=== PATIENT | male | born 1965 | race Caucasian/White ===

== ENCOUNTER → 2018-09-01 | Day surgery (SDC) | payer OTHER ==
[2018-08-31 13:54] LABS: BASOPHILS % 0.6 % (0.0-1.0); EOSINOPHILS # (AUTO) 0.1 (0.0-0.4); EOSINOPHILS % 2.5 % (0.0-6.0); HEMATOCRIT 43.1 % (38.2-49.6); HEMOGLOBIN 14.6 g/dL (14.0-18.0); LYMPHOCYTES # (AUTO) 1.5 (1.0-3.2); LYMPHOCYTES % 28.5 % (18.0-39.1); MEAN CORPUSCULAR HEMOGLOBIN 33.5 pg (28-32); MEAN CORPUSCULAR HGB CONC 33.9 g/dL (31-35); MEAN CORPUSCULAR VOLUME 98.9 fL (81-99); MONOCYTES # (AUTO) 0.6 (0.2-0.8); MONOCYTES % 11.2 % (4.4-11.3); PLATELET COUNT 187 x10e3/uL (140-360); RED BLOOD COUNT 4.36 x10e6/uL (4.3-5.7); RED CELL DISTRIBUTION WIDTH 13.9 % (11.7-14.4)
[2018-08-31 14:16] LABS: ALANINE AMINOTRANSFERASE 35 IU/L (0-55); ALBUMIN 3.9 g/dL (3.5-5.0); ALBUMIN/GLOBULIN RATIO 1.2 (0.8-2.0); ALKALINE PHOSPHATASE 63 IU/L (40-150); ANION GAP 14.5 mmol/L (8-16); BLOOD UREA NITROGEN 16 mg/dL (7-26); BUN/CREATININE RATIO 16 (6-25); CALCIUM 9.6 mg/dL (8.4-10.2); CARBON DIOXIDE 24 mmol/L (22-29); CHLORIDE 104 mmol/L (98-107); CHOL/HDL RATIO 3.5 (3.9-4.7); CHOLESTEROL 161 MD/DL (0-199); CREATININE, SERUM 0.99 mg/dL (0.72-1.25); EST GLOMERULAR FILTRATION RATE > 60 ML/MIN (60-); GLUCOSE 102 mg/dL (74-118); HDL CHOLESTEROL 46 MG/DL (40-60); LDL CHOLESTEROL 79 MG/DL (60-130); POTASSIUM 4.5 mmol/L (3.5-5.1); SODIUM 138 mmol/L (136-145); TRIGLYCERIDES 181 MG/DL (0-149)
[~2018-09-01] VITALS: Ht 193 cm; Wt 158.8 kg
[2018-09-01] VITALS (17 sets, daily range): BP systolic 19–130; BP diastolic 44–79
[~2018-09-01] MED LIST: ALLOPURINOL300 MG PO; ALPRAZOLAM 0.5 MG TAB ONE; AMLODIPINE BESY10 MG PO; ASPIRIN 325 MG TAB ONE; BENICAR20 MG PO; BYSTOLIC10 MG PO; DIPHENHYDRAMINE HCL 25 MG CAP ONE; EPTIFIBATIDE 20 ML ONE; EPTIFIBATIDE 75mg 100ML 100 ML ONE; FENTANYL CITRATE/PF 100MCG/2 ML INJ ONE; HEPARIN SOD/SOD CHLORIDE 2,000 ML ONE; IOPAMIDOL 370 MG/ML 200 ML INFUS..BTL INJ ONE; LIDOCAINE HCL 1% LOCAL INJ 20 ML VIAL ONE; METFORMIN HCL500 M2 PO; METOPROLOL TARTRATE INJ 1 MG/ML VIAL ONE; MIDAZOLAM HCL 2 MG/2 ML VIAL ONE; NITROGLYCERIN/D5W 200 MCG/ML 250 ML ONE; PRAVASTATIN SOD80 MG PO; SODIUM CHLORIDE 0.9% 1000ML 1,000 ML ONE; TICAGRELOR 90 MG TABLET ONE; VERAPAMIL HCL 2.5 MG/ML 2 ML VIAL ONE
--- NOTE | 2018-09-01 14:55 | NUR ---
Received report from Dc MEDLEY. Reviewed medications given, orders, and procedural events. Patient awake,alert, and orientedx3. Respirations even and unlabored on room air. TR band to right wrist is without signs or symptoms of active bleeding at this time. Palpable right radial pulse. RIght hand is warm. Patient denies numbness or tingling to right hand. IV to left hand is without signs or symptoms of active bleeding at this time. Prescription for aspirin and brillinta given to Patient's . Instructed patient to keep wrist straight and to not move right arm. Patient verbalized understanding at this time.
--- NOTE | 2018-09-01 16:27 | Operative Report ---
DATE OF PROCEDURE: September 01, 2018 INDICATIONS: 1. Coronary artery disease, abnormal stress test. 2. Congestive heart failure. PROCEDURES PERFORMED: 1. Left heart catheterization, selective coronary angiography. 2. Right heart catheterization. 3. Percutaneous transluminal coronary angioplasty and stent placement in the proximal right coronary artery. 4. Deployment of right wrist transradial band. COMPLICATIONS: None. RECOMMENDATIONS: Dual antiplatelet therapy for at least 6 months. Staged intervention in the circumflex artery. Access was obtained in the right radial artery. A 5-Congolese sheath was placed. Access was obtained in the right antecubital vein. A 6-Congolese sheath was placed. Balloon flotation Baird-Miguel catheter was used to perform right heart catheterization with findings as listed below. Right atrial pressure 16 mmHg. Right ventricular pressure 37/10 mmHg. Pulmonary artery pressure 33/28 mmHg with a mean of 29 mmHg. Pulmonary capillary wedge pressure 21 mmHg. Cardiac output 5.4 liters a minute. Cardiac index 1.9 liters per minute per meter squared. Coronary angiography demonstrated diffuse 50% stenosis in the left anterior descending artery, proximal circumflex 80%, proximal right coronary artery 80%, mid and distal right coronary artery 50%. Right posterior descending artery was chronically occluded, 2 mm vessel. LV end-diastolic pressure of 14. No gradient across the aortic valve on pullback. A decision was made to intervene on the right coronary artery. The patient received intravenous heparin as well as Integrilin bolus and oral aspirin and Brilinta for anticoagulation. The right coronary artery was cannulated using a 5-Congolese ERAD guiding catheter. A short wire was advanced across the lesion. Primary stent 3.5 x 15 mm Resolute Kvng deployed at 24 atmospheres. Excellent result less than 10% residual stenosis. IRIS-3 flow. No complications. Wire, guide sheath removed. TR band applied. The venous sheath was removed under manual pressure. Patient was observed in the hospital for 6 hours and subsequently discharged home same day. Job#: [id number] EV
--- NOTE | 2018-09-01 16:43 | NUR ---
Removed 3ml of air from right wrist TR band. Palpable right radial pulse. No signs of active bleeding at this time from right wrist site. Will monitor.
--- NOTE | 2018-09-01 17:15 | NUR ---
Bedside report given to Karis MEDLEY. Reviewed medications given during procedure, orders, vital signs and procedural events. Notified Karis MEDLEY that it appeared after first 3ml of air removed that the right wrist site may have bled a little but was not actively bleeding at this time. Notified Karis MEDLEY of 11ml remain in right wrist TR band.
--- NOTE | 2018-09-01 17:30 | NUR ---
Removed 3ml of air from right wrist TR band. Palpable right radial pulse. No signs of active bleeding from right wrist site. Will monitor.
--- NOTE | 2018-09-01 17:45 | NUR ---
Removed 3ml of air from right wrist TR band. Palpable right radial pulse. No signs of active bleeding from right wrist site. Will monitor.
--- NOTE | 2018-09-01 18:00 | NUR ---
Removed 3ml of air from right wrist TR band. Palpable right radial pulse. No signs of active bleeding from right wrist site. Will monitor.
--- NOTE | 2018-09-01 18:15 | NUR ---
Remaining 2mls of air removed from TR Band and TR Band removed. Gauze and tegaderm placed to site, C/D/I. Verbal and written D/C instructions given, patient and verbalizes understanding.
== END | disposition home or self-care (01) ==
LOC: CATH LAB 11:25
PROVIDERS: ATTEND Internal Medicine Interventional Cardiology
DX: I25.118 Atherosclerotic heart disease of native coronary artery with other forms of angina pectoris (principal); I11.0 Hypertensive heart disease with heart failure; I50.9 Heart failure, unspecified; Z01.812 Encounter for preprocedural laboratory examination; E78.5 Hyperlipidemia, unspecified; Z82.49 Family history of ischemic heart disease and other diseases of the circulatory system; Z79.84 Long term (current) use of oral hypoglycemic drugs
CPT/HCPCS: 36415; 80053; 80061; 85025; 92928; 93460; C1769; C1874; C1887; J1327 ×2; J2001; J2250; J7030; Q9967

== ENCOUNTER 2019-03-05 15:18 | Emergency (ER) | payer OTHER ==
[~2019-03-05] VITALS: Ht 193 cm; Wt 158.8 kg
[~2019-03-05 15:18] MED LIST changes: -ALPRAZOLAM 0.5 MG TAB ONE; +ASPIR 8181 MG PO; -ASPIRIN 325 MG TAB ONE; +BRILINTA90 MG PO; -DIPHENHYDRAMINE HCL 25 MG CAP ONE; -EPTIFIBATIDE 20 ML ONE; -EPTIFIBATIDE 75mg 100ML 100 ML ONE; -FENTANYL CITRATE/PF 100MCG/2 ML INJ ONE; -HEPARIN SOD/SOD CHLORIDE 2,000 ML ONE; -IOPAMIDOL 370 MG/ML 200 ML INFUS..BTL INJ ONE; -LIDOCAINE HCL 1% LOCAL INJ 20 ML VIAL ONE; -METOPROLOL TARTRATE INJ 1 MG/ML VIAL ONE; -MIDAZOLAM HCL 2 MG/2 ML VIAL ONE; -NITROGLYCERIN/D5W 200 MCG/ML 250 ML ONE; -SODIUM CHLORIDE 0.9% 1000ML 1,000 ML ONE; -TICAGRELOR 90 MG TABLET ONE; -VERAPAMIL HCL 2.5 MG/ML 2 ML VIAL ONE
--- NOTE | 2019-03-05 16:46 | Diagnostic Imaging Report ---
EXAMINATION: HIP RIGHT 2-3 VW (+/- PELVIS) INDICATION: Right hip pain COMPARISON: None FINDINGS: 2 views of the right hip and pelvis demonstrate no acute fracture or dislocation. Alignment is anatomic. No substantial degenerative changes. IMPRESSION: No acute osseous injury. Signed by: Shayy Guillaume MD on 03/05/2019 4:42 PM
[2019-03-05] MEDS ORDERED: IBUPROFEN 200 MG TAB PO ONE (17:29)
[2019-03-05] MEDS ORDERED: IBUPROFEN 600 MG TAB PO ONE (17:29)
[2019-03-05] MEDS ORDERED: PREDNISONE 20 MG TAB PO ONE (17:30)
[2019-03-05] MEDS ORDERED: CYCLOBENZAPRINE HCL 10 MG TAB PO ONE (17:30)
[2019-03-05] MEDS ORDERED: HYDROCODONE/APAP 10MG-325MG TAB PO ONE (17:30)
--- NOTE | 2019-03-05 18:50 | NUR ---
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
== END 2019-03-05 19:09 | disposition home or self-care (01) ==
LOC: ER 15:18
DX: M54.41 Lumbago with sciatica, right side (principal); I10 Essential (primary) hypertension; E11.9 Type 2 diabetes mellitus without complications
CPT/HCPCS: 73502; 99283; J7512

== ENCOUNTER → 2020-02-14 | Day surgery (SDC) | payer OTHER ==
[2020-02-11 10:57] LABS: BASOPHILS % 0.5 % (0.0-1.0); EOSINOPHILS # (AUTO) 0.1 (0.0-0.4); EOSINOPHILS % 1.8 % (0.0-6.0); HEMATOCRIT 35.8 % (38.2-49.6); HEMOGLOBIN 11.5 g/dL (14.0-18.0); LYMPHOCYTES # (AUTO) 1.5 (1.0-3.2); LYMPHOCYTES % 26.4 % (18.0-39.1); MEAN CORPUSCULAR HGB CONC 32.1 g/dL (31-35); MEAN CORPUSCULAR VOLUME 102.6 fL (81-99); MONOCYTES # (AUTO) 0.5 (0.2-0.8); MONOCYTES % 9.2 % (4.4-11.3); NEUTROPHILS # (AUTO) 3.4 (2.1-6.9); NEUTROPHILS % 61.4 % (38.7-80.0); PLATELET COUNT 141 x10e3/uL (140-360); RED BLOOD COUNT 3.49 x10e6/uL (4.3-5.7); RED CELL DISTRIBUTION WIDTH 14.9 % (11.7-14.4)
[2020-02-11 11:20] LABS: ALBUMIN 3.3 g/dL (3.5-5.0); ALBUMIN/GLOBULIN RATIO 0.9 (0.8-2.0); ANION GAP 11.6 mmol/L (8-16); CALCIUM 9.3 mg/dL (8.4-10.2); CREATININE, SERUM 1.37 mg/dL (0.72-1.25); POTASSIUM 4.6 mmol/L (3.5-5.1)
[~2020-02-14] VITALS: Ht 195.6 cm; Wt 163.3 kg
[2020-02-14] VITALS (10 sets, daily range): BP systolic 92–145; BP diastolic 40–69
[~2020-02-14] MED LIST changes: +ALPRAZOLAM 0.5 MG TAB ONE; +ASPIRIN 325 MG TAB ONE; +BIVALRIUDIN 250 MG/VIAL VIAL IV ONE; +CRESTOR10 MG PO; +DIPHENHYDRAMINE HCL 25 MG CAP ONE; +FENTANYL CITRATE/PF 100MCG/2 ML INJ ONE; +FUROSEMIDE40 MG PO; +GABAPENTIN300 MG PO; +GLIMEPIRIDE2 MG PO; +HEPARIN SOD (PORCINE) 1000 UNIT/ML 30ML ONE; +HEPARIN SOD/SOD CHLORIDE 2,000 ML ONE; +IOPAMIDOL 370 MG/ML 200 ML INFUS..BTL INJ ONE; +LIDOCAINE HCL 2% LOCAL 20 ML VIAL ONE; +MIDAZOLAM HCL 2 MG/2 ML VIAL ONE; +NITROGLYCERIN/D5W 200 MCG/ML 250 ML ONE; +PIOGLITAZONE HC45 MG PO; +PRASUGREL 10 MG TAB ONE; +SODIUM CHLORIDE 0.9% 1000ML 1,000 ML ONE; +SODIUM CHLORIDE 0.9% 50ML 50 ML ONE; +VERAPAMIL HCL 2.5 MG/ML 2 ML VIAL ONE
--- NOTE | 2020-02-14 17:40 | Operative Report ---
DATE OF PROCEDURE: 02/14/2020 SURGEON: Jeison Torres MD INDICATION: Coronary artery disease, angina, abnormal stress test. PROCEDURES PERFORMED: 1. Ultrasound-guided access in the right radial artery with sheath placement. 2. Conscious sedation, 65 minutes. 3. selective coronary angiography. 4. Stent placement in the mid left anterior descending artery. 5. Deployment of right wrist TR band. COMPLICATIONS: None. BLOOD LOSS: Minimal. RECOMMENDATIONS: Dual antiplatelet therapy for at least 6 months. DESCRIPTION OF PROCEDURE: Access was obtained in the right radial artery using ultrasound guidance. A 6-Canadian sheath was placed. The patient received intravenous Angiomax and oral prasugrel, and aspirin for anticoagulation. The left main, mild disease coronary artery stenosis. Right posterior descending artery is completely occluded stenosis. LV end-diastolic pressure of 20. No gradient across the aortic valve on pullback. A decision was made to intervene on the left anterior descending artery. The left main was cannulated using an XB3.5, 6-Canadian guiding catheter. A short wire was advanced for support. Primary stent deployed at 14 atmospheres. Excellent end result, less than 10% residual stenosis, IRIS-3 flow. No complications. Wire and guide sheath were removed. TR band applied. The patient discharged home same day. Jeison Torres MD KSB/MODL /[id number]
== END | disposition home or self-care (01) ==
LOC: CATH LAB 10:30
PROVIDERS: ATTEND Internal Medicine Interventional Cardiology
DX: I25.119 Atherosclerotic heart disease of native coronary artery with unspecified angina pectoris (principal); R94.39 Abnormal result of other cardiovascular function study; E78.5 Hyperlipidemia, unspecified; I10 Essential (primary) hypertension; Z01.812 Encounter for preprocedural laboratory examination; Z11.59 Encounter for screening for other viral diseases; Z79.82 Long term (current) use of aspirin; Z79.84 Long term (current) use of oral hypoglycemic drugs
CPT/HCPCS: 36415; 76937; 80053; 85025; 92928; 93458; C1769 ×3; C1874; C1887 ×2; C1894; J0583; J1644; J2001; J2250; J3010; J7030; Q9967; U0002; 99152; 99153

== ENCOUNTER 2020-05-26 02:39 | Observation (INO) | payer OTHER ==
[2020-05-26] VITALS (8 sets, daily range): BP systolic 108–122; BP diastolic 61–71
[~2020-05-26] VITALS: Ht 195.6 cm; Wt 158.8 kg
[~2020-05-26 02:39] MED LIST changes: -ALPRAZOLAM 0.5 MG TAB ONE; -ASPIRIN 325 MG TAB ONE; -BIVALRIUDIN 250 MG/VIAL VIAL IV ONE; -DIPHENHYDRAMINE HCL 25 MG CAP ONE; -FENTANYL CITRATE/PF 100MCG/2 ML INJ ONE; -HEPARIN SOD (PORCINE) 1000 UNIT/ML 30ML ONE; -HEPARIN SOD/SOD CHLORIDE 2,000 ML ONE; -IOPAMIDOL 370 MG/ML 200 ML INFUS..BTL INJ ONE; -LIDOCAINE HCL 2% LOCAL 20 ML VIAL ONE; -MIDAZOLAM HCL 2 MG/2 ML VIAL ONE; -NITROGLYCERIN/D5W 200 MCG/ML 250 ML ONE; -PRASUGREL 10 MG TAB ONE; -SODIUM CHLORIDE 0.9% 1000ML 1,000 ML ONE; -SODIUM CHLORIDE 0.9% 50ML 50 ML ONE; -VERAPAMIL HCL 2.5 MG/ML 2 ML VIAL ONE
--- NOTE | 2020-05-26 02:59 | Emergency Department Note ---
History of Present Illnes History of Present Illness Chief Complaint: Chest Pain History of Present Illness This is a 54 year old male PRESENTS TO ED WITH C/O CHEST PRESSURE THAT RADIATES TO LT SHOULDER AND MILD SOB ON EXERTION SINCE 1899 LAST NIGHT, STATES CAME TO ED D/T TROUBLE SLEEPING S/T ANXIETY; PT HAD CATH INTERVENTION 02/14/2020 AT THIS F[address]ILITY BY DR. SCOTT; . 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 Any updates have been documented here. Past Medical History Recent Fever: No Clinical Suspicion of Infectio: No New/Unexplained Change in Ment: No Past Medical History: Hypertension, Diabetes, CAD, Hyperlipedemia Other Medical History: "VEIN DISEASE IN MY LEGS" LUPUS GOUT "PREDIABETIC" Past Surgical History: T&A Other Surgery: CARDIAC STENTS Social History Smoking Cessation: Former smoker Alcohol Use: Occasional Any Illegal Drug Use: No Physically hurt or threatened: No Family History Family history of heart diseas: Yes Other Last Tetanus: UTD Review of Systems Review of Systems Constitutional: Reports no symptoms EENTM: Reports no symptoms Cardiovascular: Reports as per HPI Respiratory: Reports as per HPI Gastrointestinal: Reports no symptoms Genitourinary: Reports no symptoms Musculoskeletal: Reports no symptoms Integumentary: Reports no symptoms Neurological: Reports no symptoms Psychological: Reports no symptoms Endocrine: Reports no symptoms Hematological/Lymphatic: Reports no symptoms Physical Exam Related Data Allergies: Coded Allergies: No Known Drug Allergies (Verified Allergy, Unknown, 08/31/18) Triage Vital Signs Vital Signs Date Time Temp Pulse Resp B/P (MAP) Pulse Ox O2 Delivery O2 Flow Rate FiO2 05/26/20 02:42 98.4 69 20 115/72 100 Room Air Vital signs reviewed: Yes Physical Exam CONSTITUTIONAL Constitutional: Present well-developed, Present well-nourished, Present morbidly obese; Absent distressed HENT HENT: Present normocephalic, Present atraumatic, Present oropharynx clear/moist, Present nose normal HENT L/R: Present left ext ear normal, Present right ext ear normal EYES Eyes: Reports PERRL, Reports conjunctivae normal NECK Neck: Present ROM normal PULMONARY Pulmonary: Present effort normal, Present breath sounds normal CARDIOVASCULAR Cardiovascular: Present regular rhythm, Present heart sounds normal, Present capillary refill normal, Present normal rate GASTROINTESTINAL Abdominal: Present soft, Present nontender, Present bowel sounds normal GENITOURINARY Genitourinary: Present exam deferred SKIN Skin: Present warm, Present dry MUSCULOSKELETAL Musculoskeletal: Present ROM normal, Present edema (1 + bilateral lower extremeties) NEUROLOGICAL Neurological: Present alert, Present oriented x 3, Present no gross motor or sensory deficits PSYCHOLOGICAL Psychological: Present mood/affect normal, Present judgement normal Results Laboratory Laboratory Laboratory Tests Test 05/26/20 02:51 White Blood Count 7.72 x10e3/uL (4.8-10.8) Red Blood Count 4.01 x10e6/uL (4.3-5.7) Hemoglobin 13.6 g/dL (14.0-18.0) Hematocrit 41.2 % (38.2-49.6) Mean Corpuscular Volume 102.7 fL (81-99) Mean Corpuscular Hemoglobin 33.9 pg (28-32) Mean Corpuscular Hemoglobin Concent 33.0 g/dL (31-35) Red Cell Distribution Width 13.7 % (11.7-14.4) Platelet Count 188 x10e3/uL (140-360) Neutrophils (%) (Auto) 61.6 % (38.7-80.0) Lymphocytes (%) (Auto) 25.4 % (18.0-39.1) Monocytes (%) (Auto) 9.8 % (4.4-11.3) Eosinophils (%) (Auto) 2.1 % (0.0-6.0) Basophils (%) (Auto) 0.6 % (0.0-1.0) Neutrophils # (Auto) 4.8 (2.1-6.9) Lymphocytes # (Auto) 2.0 (1.0-3.2) Monocytes # (Auto) 0.8 (0.2-0.8) Eosinophils # (Auto) 0.2 (0.0-0.4) Basophils # (Auto) 0.1 (0.0-0.1) Absolute Immature Granulocyte (auto 0.04 x10e3/uL (0-0.1) Prothrombin Time 12.4 seconds (11.9-14.5) Prothromb Time International Ratio 0.88 Activated Partial Thromboplast Time 28.6 seconds (23.8-35.5) Sodium Level 142 mmol/L (136-145) Potassium Level 4.3 mmol/L (3.5-5.1) Chloride Level 104 mmol/L (98-107) Carbon Dioxide Level 24 mmol/L (22-29) Anion Gap 18.3 mmol/L (8-16) Blood Urea Nitrogen 26 mg/dL (7-26) Creatinine 1.33 mg/dL (0.72-1.25) Estimat Glomerular Filtration Rate 56 ML/MIN (60-) BUN/Creatinine Ratio 20 (6-25) Glucose Level 100 mg/dL (74-118) Calcium Level 9.7 mg/dL (8.4-10.2) Total Bilirubin 0.3 mg/dL (0.2-1.2) Aspartate Amino Transf (AST/SGOT) 25 IU/L (5-34) Alanine Aminotransferase (ALT/SGPT) 34 IU/L (0-55) Alkaline Phosphatase 65 IU/L (40-150) Creatine Kinase 120 IU/L (30-200) Creatine Kinase MB 1.60 ng/mL (0-5.0) Troponin I 0.013 ng/mL (0-0.300) B-Type Natriuretic Peptide < 10.0 pg/mL (0-100) Total Protein 7.5 g/dL (6.5-8.1) Albumin 4.0 g/dL (3.5-5.0) Globulin 3.5 g/dL (2.3-3.5) Albumin/Globulin Ratio 1.1 (0.8-2.0) Lab results reviewed: Yes Imaging Imaging results reviewed: Yes Impressions Procedure: [id number] DX/CHEST SINGLE (PORTABLE) Exam Date: Exam Time: REPORT STATUS: Signed EXAMINATION: CHEST SINGLE (PORTABLE) INDICATION: chest pain COMPARISON: None FINDINGS: Diffuse hazy attenuation likely related to superimposed soft tissues. Moderately enlarged cardiac silhouette.. Shallow lung volumes accentuate heart size and interstitial pulmonary markings. Otherwise, no consolidation. No pleural effusion. No pneumothorax. IMPRESSION: Moderate cardiomegaly. No edema or consolidation. Signed by: Radha Dwyer MD on 05/26/2020 3:35 AM Dictated By: RADHA DWYER MD 4 Transcribed By: YANET on 05/26/20334 COPY TO: IRAM WATERS MD~ Procedures 12 Lead ECG Interpretation ECG Interpretation : ECG: ECG 1 Circular Distributor: Interpreted by ED physician Date: May 26, 2020 Time: 03:03 Rhythm: sinus rhythm Rate: normal BPM: 67 QRS axis: normal ST segments normal: Yes T waves normal: No T waves flattening: III, aVF, V2 Q waves: V1 Clinical Impression: abnormal ECG Assessment & Plan Medical Decision Making MDM pt with h/o htn, dm, cad with cardiac stents presents with chest discomfort since 7 pm cbc, cmp, pt/ptt, ekg, bnp, cardiac enzymes, cxr ordered to eval for myocardial infarction, acs, pneumonia, pulmonary edema, electrolyte abnormality i spoke with dr maurer and left a message for dr uzair roldan covering for dr scott Assessment & Plan Final Impression: (1) Chest pain Depart Disposition: ADMITTED Last Vital Signs Date Time Temp Pulse Resp B/P (MAP) Pulse Ox O2 Delivery O2 Flow Rate FiO2 05/26/20 02:42 98.4 69 20 115/72 100 Room Air Home Meds Reported Medications Pioglitazone Hcl (PIOGLITAZONE HCL) 45 Mg Tablet, 30 MG PO DAILY, #30 TAB 02/11/20 Furosemide (FUROSEMIDE) 40 Mg Tablet, 40 MG PO BID, #30 TAB 02/11/20 Gabapentin (GABAPENTIN) 300 Mg Capsule, 300 MG PO BID, #60 CAP 02/11/20 Glimepiride (GLIMEPIRIDE) 2 Mg Tablet, 2 MG PO DAILY, TAB 02/11/20 Rosuvastatin Calcium (CRESTOR) 10 Mg Tab, 40 MG PO DAILY THERAPEUTICALLY SUBSTITUTED WITH SIMVASTATIN 40MG 02/11/20 Aspirin (ASPIR 81) 81 Mg Tablet.dr 81 MG PO DAILY 10/16/18 Olmesartan Medoxomil (BENICAR) 20 Mg Tablet, 40 MG PO DAILY, #30 TAB 08/31/18 Nebivolol Hcl (BYSTOLIC) 10 Mg Tablet, 10 MG PO DAILY, TAB 08/31/18 Amlodipine Besylate (AMLODIPINE BESYLATE) 10 Mg Tablet, 10 MG PO DAILY, #30 TAB 08/31/18 Allopurinol (ALLOPURINOL) 300 Mg Tablet, 300 MG PO DAILY, #30 TAB 08/31/18 IRAM WATERS MD May 26, 2020 02:59
[2020-05-26 03:06] LABS: BASOPHILS # (AUTO) 0.1 (0.0-0.1); BASOPHILS % 0.6 % (0.0-1.0); EOSINOPHILS # (AUTO) 0.2 (0.0-0.4); EOSINOPHILS % 2.1 % (0.0-6.0); HEMATOCRIT 41.2 % (38.2-49.6); HEMOGLOBIN 13.6 g/dL (14.0-18.0); LYMPHOCYTES % 25.4 % (18.0-39.1); MEAN CORPUSCULAR HEMOGLOBIN 33.9 pg (28-32); MEAN CORPUSCULAR VOLUME 102.7 fL (81-99); MONOCYTES # (AUTO) 0.8 (0.2-0.8); MONOCYTES % 9.8 % (4.4-11.3); NEUTROPHILS # (AUTO) 4.8 (2.1-6.9); NEUTROPHILS % 61.6 % (38.7-80.0); PLATELET COUNT 188 x10e3/uL (140-360); RED BLOOD COUNT 4.01 x10e6/uL (4.3-5.7); RED CELL DISTRIBUTION WIDTH 13.7 % (11.7-14.4)
[2020-05-26 03:18] LABS: INR 0.88; PROTHROMBIN TIME 12.4 seconds (11.9-14.5)
[2020-05-26 03:19] LABS: PARTIAL THROMBOPLASTIN TIME 28.6 seconds (23.8-35.5)
[2020-05-26 03:28] LABS: ALBUMIN/GLOBULIN RATIO 1.1 (0.8-2.0); ANION GAP 18.3 mmol/L (8-16); CALCIUM 9.7 mg/dL (8.4-10.2); CREATININE, SERUM 1.33 mg/dL (0.72-1.25); POTASSIUM 4.3 mmol/L (3.5-5.1)
[2020-05-26 03:34] LABS: CREATINE KINASE MB 1.6 ng/mL (0-5.0)
--- NOTE | 2020-05-26 03:38 | Diagnostic Imaging Report ---
EXAMINATION: CHEST SINGLE (PORTABLE) INDICATION: chest pain COMPARISON: None FINDINGS: Diffuse hazy attenuation likely related to superimposed soft tissues. Moderately enlarged cardiac silhouette.. Shallow lung volumes accentuate heart size and interstitial pulmonary markings. Otherwise, no consolidation. No pleural effusion. No pneumothorax. IMPRESSION: Moderate cardiomegaly. No edema or consolidation. Signed by: Barrett Del Rio MD on 05/26/2020 3:35 AM
[2020-05-26] MEDS ORDERED: ASPIRIN 81 MG CHEW TAB PO ONE (04:00)
[2020-05-26] MEDS ORDERED: NITROGLYCERIN 0.4 MG SUBL SL PRN (04:00)
[2020-05-26] MEDS ORDERED: ONDANSETRON HCL INJ 2MG/ML 2ML 2 MG/ML VIAL IV PRN (04:00)
[2020-05-26] MEDS ORDERED: INFLUENZA VIRUS VAC SPLIT INJ 0.5 ML SYR IM SCH (05:26)
--- NOTE | 2020-05-26 07:00 | NUR ---
RECEIVED BEDSIDE SHIFT REPORT FROM OFF GOING NIGHT NURSE. PATIENT ABLE TO VOICE NEEDS. RESPIRATIONS EVEN AND NONLABORED. PATIENT IN STABLE CONDITION, NO S/S OF DISTRESS NOTED. IV SITE ASYMPTOMATIC AND PATENT, TRANSPARENT DRESSING C/D/I. TELEMETRY APPLIED. BED IN LOWEST POSITION AND LOCKED, SIDE RAILS X2, NONSKID SOCKS APPLIED. CALL LIGHT WITHIN REACH.
[2020-05-26] MEDS ORDERED: EFFIENT10 MG PO (07:07)
[2020-05-26] MEDS ORDERED: PIOGLITAZONE HCL 45 MG TAB PO SCH (09:00)
[2020-05-26] MEDS: OLMESARTAN 20 MG TAB PO SCH (09:58)
[2020-05-26] MEDS: ASPIRIN 81 MG CHEW TAB PO SCH (09:58)
[2020-05-26] MEDS: PRASUGREL 10 MG TAB PO SCH (09:58)
[2020-05-26 10:16] LABS: CHOL/HDL RATIO 3.4 (3.9-4.7)
[2020-05-26] MEDS: HYDROCODONE/APAP 5MG-325MG TAB PO PRN ×2 (11:49→16:40)
--- NOTE | 2020-05-26 11:59 | History and Physical ---
The patient of Dr. Moyer and Dr. Torres HISTORY OF PRESENT ILLNESS: The patient admitted with chest pain, anterior chest, radiating to the left shoulder. He has a history of anxiety, depression related to him being laid off from work after 29 years. He is known to have significant coronary artery disease. Pain was associated with shortness of breath. He has a history of diabetes, which he now says controlled with diet. He denies previous angina though he has had coronary angiograms in the past. Two stents were placed in 2018 and one in 2019. He has had vein angioplasty in the past and coronary stent placement. FAMILY HISTORY: Positive for premature coronary artery disease in his father, at age 55 of an MA. The patient has smoked heavily, but quit and then now smokes an occasional cigarette a pack a week. Drinks binge drink. Works in [employer], but recently laid off. ALLERGIES: NO KNOWN ALLERGIES. MEDICATIONS: Included: 1. Benicar. 2. Amlodipine. 3. Bystolic. 4. Crestor. 5. Actos. 6. Aspirin. 7. Lasix. 8. . 9. In the past, he is taking gabapentin. 10. Allopurinol. 11. Naprosyn. REVIEW OF SYSTEMS: He has a history of positive SARAY. PHYSICAL EXAMINATION: VITAL SIGNS: Temperature 97.5, pulse 73, respirations 20, blood pressure 109/61. He has a history of orthostatic hypotension. GENERAL: He is a burly white male, looking somewhat older than his stated age. He is 160 kg. HEENT: Head normocephalic and atraumatic. Eyes, extraocular movements are intact. LUNGS: Clear. HEART: Regular rhythm. No chest wall tenderness. ABDOMEN: Nontender. EXTREMITIES: Nonedematous. IMPRESSION: Unstable angina. History of coronary stents. Awaiting Cardiology opinion. We will hold diabetic medicine, reduce antihypertensives as tolerated. Prophylactic Lovenox and doxepin for sleep and depression. Anti-smoking assistance, patient declines nicotine patch. Thank you for this kind referral. MD SHY Mario/KELLEY /[id number]
[2020-05-26 12:51] LABS: CREATINE KINASE MB 1.2 ng/mL (0-5.0)
[2020-05-26] MEDS ORDERED: IOPAMIDOL 370 MG/ML 200 ML INFUS..BTL INJ ONE (15:41)
[2020-05-26] MEDS ORDERED: SODIUM CHLORIDE 0.9% 50ML 50 ML ONE (15:41)
--- NOTE | 2020-05-26 15:54 | Diagnostic Imaging Report ---
EXAM: CT Chest WITH contrast- Pulmonary Embolism Protocol INDICATION: Chest pain COMPARISON: Chest radiograph 05/26/2020 TECHNIQUE: Chest was scanned utilizing a multidetector helical scanner from the lung apex through the level of the diaphragm after administration of IV contrast. Thin section reconstructions were obtained with special concentration on the pulmonary arteries. Coronal and sagittal reformations were obtained. Pulmonary embolism protocol was performed. IV CONTRAST: 100 cc of Isovue 370 RADIATION DOSE: Total DLP: 630 mGy*cm Dose modulation, iterative reconstruction, and/or weight based adjustment of the mA/kV was utilized to reduce the radiation dose to as low as reasonably achievable. COMPLICATIONS: None FINDINGS: LINES/ TUBES: None. PULMONARY ARTERIES: No filling defect is identified within the pulmonary arteries to the segmental level. The subsegmental pulmonary arteries are not well opacified. Main pulmonary artery measures 2.6 cm in diameter. LUNGS AND AIRWAYS: The central airways are patent. No focal consolidation or pulmonary edema. Mild dependent right basilar subsegmental atelectasis. PLEURA: The pleural spaces are clear. HEART AND MEDIASTINUM: The thyroid gland is normal. No mediastinal, hilar or axillary lymphadenopathy. The heart is normal in size.. There is no pericardial effusion. UPPER ABDOMEN: Nonobstructive 3 mm right upper pole renal calculus. No other acute findings in the upper abdomen. BONES: The visualized bony thorax is within normal limits. SOFT TISSUES: Unremarkable. IMPRESSION: No pulmonary embolism. No focal pneumonia or pulmonary edema. 3 mm right upper pole renal calculus. Signed by: Shayy Guillaume MD on 05/26/2020 3:51 PM
[2020-05-26] MEDS: ENOXAPARIN SOD INJ 40 MG/0.4 ML SYR SC SCH (16:24)
--- NOTE | 2020-05-26 19:00 | NUR ---
RECEIVED PATIENT IN BEDSIDE SHIFT REPORT. PATIENT RESTING IN BED AT THIS TIME. CHEST TIGHTNESS REPORTED 4/10, BUT GOING DOWN. NO S&S OF DISTRESS NOTED. O2 @ 2L VIA NC. TELE MONITOR ON. BED LOCKED IN LOWEST POSITION, SIDE RAILS UPX2, CALL LIGHT IN REACH.
--- NOTE | 2020-05-26 19:17 | NUR ---
COMPLETED BEDSIDE SHIFT REPORT AND ROUNDING WITH ONCOMING NIGHT NURSE. PATIENT ABLE TO VOICE NEEDS. RESPIRATIONS EVEN AND NONLABORED. PATIENT IN STABLE CONDITION, NO S/S OF DISTRESS NOTED. IV SITE ASYMPTOMATIC AND PATENT, TRANSPARENT DRESSING C/D/I. TELEMETRY APPLIED. BED IN LOWEST POSITION AND LOCKED, SIDE RAILS X2, NONSKID SOCKS APPLIED. CALL LIGHT WITHIN REACH.
[2020-05-26] MEDS: DOXEPIN HCL 25 MG CAP PO SCH (21:02)
[2020-05-26] MEDS: SIMVASTATIN 40 MG TAB PO SCH (21:02)
[2020-05-26] MEDS: NEBIVOLOL 10 MG TAB PO SCH (21:43)
[2020-05-27] VITALS (7 sets, daily range): BP systolic 105–134; BP diastolic 51–77
--- NOTE | 2020-05-27 00:27 | Consultation ---
DATE OF CONSULTATION: 05/26/2020 Cardiology Consultation Note REASON FOR CONSULT: Chest pain. CHIEF COMPLAINT: Chest pain. HISTORY OF PRESENT ILLNESS: The patient is a 54-year-old man, history of known coronary artery disease, status post PCI to the LAD in January, who presents with sudden onset of tightness in his chest radiating to his left arm associated with some shortness of breath, mild relief with nitroglycerin, has been constant now for several hours. No significant relieving factors. He has been compliant with his medicines. No orthopnea. Lower extremity edema is chronic and somewhat better than usual per the patient. No changes in his medications or diet. REVIEW OF SYSTEMS: As per HPI, otherwise negative. Denies fevers, chills, cough, or exposure to COVID-19. SOCIAL HISTORY: Does not smoke, drink, or abuse drugs. FAMILY HISTORY: Noncontributory. OUTPATIENT MEDICATIONS: Reviewed. ALLERGIES: NO KNOWN DRUG ALLERGIES. PHYSICAL EXAMINATION: VITAL SIGNS: Temperature afebrile, pulse 70, respiratory rate 18, blood pressure 108/63, saturating 100% on nasal cannula. GENERAL: Well-developed, well-nourished, in no acute distress. CARDIOVASCULAR: Regular rate and rhythm. No murmurs, rubs, or gallops. LUNGS: Clear to auscultation bilaterally. ABDOMEN: Soft, nontender, and nondistended. NEURO AND PSYCH: Alert and oriented to person, place, and time. Normal affect. INPATIENT MEDICATIONS: Reviewed. LABORATORY DATA: Reviewed. Troponins negative. BNP is normal. IMAGING DATA: Reviewed. CT of the chest shows no pulmonary edema or pneumonia. No dissection. Telemetry reviewed and interpreted personally by me shows normal sinus rhythm. EKG shows nonspecific ST-T changes, otherwise sinus rhythm. ASSESSMENT/PLAN: 1. Unstable angina. 2. Coronary artery disease, status post percutaneous coronary intervention. 3. Chronic venous insufficiency and lower extremity edema. PLAN: We will plan for stress testing tomorrow. Echocardiogram has been ordered and will be reviewed, has been ruled out for acute MT. Continue other cardiovascular medications. Thank you for this consult. We will continue to follow. MD SANJAY AvendañoP/MODL /[id number]
[2020-05-27 05:20] LABS: BASOPHILS % 0.4 % (0.0-1.0); EOSINOPHILS # (AUTO) 0.1 (0.0-0.4); EOSINOPHILS % 2.4 % (0.0-6.0); HEMATOCRIT 37.8 % (38.2-49.6); HEMOGLOBIN 12.2 g/dL (14.0-18.0); LYMPHOCYTES # (AUTO) 1.3 (1.0-3.2); LYMPHOCYTES % 27.3 % (18.0-39.1); MEAN CORPUSCULAR HEMOGLOBIN 33.2 pg (28-32); MEAN CORPUSCULAR HGB CONC 32.3 g/dL (31-35); MONOCYTES # (AUTO) 0.6 (0.2-0.8); MONOCYTES % 12.4 % (4.4-11.3); NEUTROPHILS # (AUTO) 2.6 (2.1-6.9); NEUTROPHILS % 57.1 % (38.7-80.0); PLATELET COUNT 154 x10e3/uL (140-360); RED BLOOD COUNT 3.67 x10e6/uL (4.3-5.7); RED CELL DISTRIBUTION WIDTH 13.2 % (11.7-14.4)
[2020-05-27 05:38] LABS: ANION GAP 12.1 mmol/L (8-16); BLOOD UREA NITROGEN 15 mg/dL (7-26); BUN/CREATININE RATIO 17 (6-25); CALCIUM 8.9 mg/dL (8.4-10.2); CARBON DIOXIDE 25 mmol/L (22-29); CHLORIDE 107 mmol/L (98-107); CREATININE, SERUM 0.89 mg/dL (0.72-1.25); EST GLOMERULAR FILTRATION RATE > 60 ML/MIN (60-); GLUCOSE 92 mg/dL (74-118); POTASSIUM 4.1 mmol/L (3.5-5.1); SODIUM 140 mmol/L (136-145)
[2020-05-27 05:51] LABS: CHOL/HDL RATIO 3.8 (3.9-4.7)
[2020-05-27] MEDS: FUROSEMIDE 40 MG TAB PO SCH (08:18)
[2020-05-27] MEDS: ASPIRIN 81 MG CHEW TAB PO SCH (08:18)
[2020-05-27] MEDS: OLMESARTAN 20 MG TAB PO SCH (08:18)
[2020-05-27] MEDS: PRASUGREL 10 MG TAB PO SCH (08:19)
--- NOTE | 2020-05-27 08:57 | Diagnostic Imaging Report ---
X-ray chest frontal view History: Chest pain Comparison: None Findings: Lines and tubes: Not applicable Central airways: Unremarkable Cardiac silhouette: Apparently enlarged Mediastinal silhouettes: Unremarkable for the technique Pleura: No pleural effusion, pneumothorax or thickening Diaphragms: Unremarkable Lungs: Crowding of the vascular markings likely because of the poor inspiratory effort but no definite focal lung disease. Skeletal structures: Unremarkable Extrathoracic soft tissues: Unremarkable Impression: No acute cardiopulmonary disease on this exam Signed by: Yanick Lemons MD on 05/27/2020 8:53 AM
--- NOTE | 2020-05-27 10:42 | Diagnostic Imaging Report ---
Abdominal Ultrasound Limited Clinical Diagnosis: Chest pain Comparison: None Technique: Multiple transaxial and longitudinal images were obtained through the abdomen with real time ultrasonography. A low frequency curvilinear transducer was utilized. Multiple images were submitted for interpretation. Report: The patient has limited mental capacity and was unable to cooperate for the exam. There was intestinal gas that interfered with the exam. Liver: The liver measures 16.9 cm in the right midaxillary line. There are no focal masses or abnormal cysts. The echogenicity is mildly increased. Gallbladder: The transverse diameter is within normal limits. The wall measures 3 mm. There are no shadowing stones visualized. There is sludge visualized. Sonographic Botello's sign is negative. Biliary tree: There is no evidence of intra or extra hepatic biliary ductal dilatation. The common bile duct measures 3 mm. Portal vein: The portal vein measures 12 mm. There is hepatopedal flow. Hepatic veins: Unremarkable. Pancreas: The pancreas shows normal echotexture and no focal masses or cysts. There is no pancreatic duct dilatation. Ascites: Absent Pleural Effusion: Absent Right kidney: The right kidney measures 12.4 cm. There is no evidence of hydronephrosis, mass, cyst. IVC/Aorta: Partially seen segments demonstrate no abnormality. Impression: Borderline hepatomegaly showing mildly increased echogenicity of the liver that could represent fatty infiltration. Signed by: Yanick Lemons MD on 05/27/2020 10:39 AM
--- NOTE | 2020-05-27 11:32 | NUR ---
PATIENT OFF THE UNIT @ 1132 VIA WHEELCHAIR FOR A STRESS TEST. PATIENT LEFT THE UNIT IN STABLE CONDITION, NO S/S OF DISTRESS NOTED. TELEMETRY APPLIED.
[2020-05-27] MEDS ORDERED: REGADENOSON 0.4 MG/5 ML SYR IV ONE (12:53)
--- NOTE | 2020-05-27 16:06 | NUR ---
PATIENT ARRIVED BACK TO THE UNIT @ 1532 FROM THE STRESS TEST VIA WHEELCHAIR. PATIENT IN STABLE CONDITION, NO S/S OF DISTRESS NOTED. TELEMETRY APPLIED. NO PAIN VOICED. RESPIRATIONS EVEN NONLABORED.
[2020-05-27] MEDS: ENOXAPARIN SOD INJ 40 MG/0.4 ML SYR SC SCH (16:44)
--- NOTE | 2020-05-27 17:58 | NUR ---
Nutrition Screen Note RD Recommendation for Physician: - Continue current diet, add 2000 ADA if BG trends up Plan of Care: RD following, monitoring for tolerance and adequacy Nutrition reason for involvement: MD Consult Primary Diagnose(s): chest pain PMH: depression, anxiety, CAD with 2 stents placed, DM2 Ht: 77 in Wt: 350 lb BMI: 41.5 kg/m2 IBW: [address] Assessment: (05/27) 54 YOM admitted for chest pain, pt seen today for MD consult- unspecified reason. Pt reports good appetite and po intake currently and [employer]IFT. Pt denies any wt loss or GI distress. Pt receptive to diet education at time of visit, handouts provided on consistent carb heart healthy diet restrictions including CHO sources, serving sizes, Na foods to avoid, fats to avoid, and meal planning. Pt with no questions or concerns at time of visit. Chart reviewed. Labs and meds reviewed. Will continue to monitor. Current Diet: Cardiac Malnutrition Evaluation (05/27/20) The patient does not meet criteria for a specified degree of malnutrition at this time. Will re-evaluate at follow-up as appropriate. Diet Education Needs Assessment: Diet education indicated, pt receptive- provided 05/27 Learner(s): pt Barriers: none Cultural/Language Modifications: none Readiness: ready Method: handouts Topics: carb consistent heart healthy diet restrictions Understanding/Compliance: fair Diet tolerance: tolerating po Nutrition Care Level: low Signed: Zo Steve RD, LD, [facility]
--- NOTE | 2020-05-27 19:01 | NUR ---
COMPLETED BEDSIDE SHIFT REPORT AND ROUNDING WITH ONCOMING NIGHT NURSE. PATIENT ABLE TO VOICE NEEDS. RESPIRATIONS EVEN AND NONLABORED. PATIENT IN STABLE CONDITION, NO S/S OF DISTRESS NOTED. IV SITE ASYMPTOMATIC AND PATENT, TRANSPARENT DRESSING C/D/I. TELEMETRY APPLIED. NO CHEST PAIN VOICED. BED IN LOWEST POSITION AND LOCKED, SIDE RAILS X2, NONSKID SOCKS APPLIED. CALL LIGHT WITHIN REACH.
[2020-05-27] MEDS: NEBIVOLOL 10 MG TAB PO SCH (20:45)
[2020-05-27] MEDS: SIMVASTATIN 40 MG TAB PO SCH (20:45)
[2020-05-27] MEDS: DOXEPIN HCL 25 MG CAP PO SCH (20:45)
[2020-05-28 00:06] VITALS: BP 116/66
[2020-05-28 04:32] VITALS: BP 108/57
--- NOTE | 2020-05-28 07:00 | NUR ---
ASSUMED CARE. AAOX4. ACYANOTIC. RESTING IN BED. NO DISTRESS NOTED. CALL LIGHT IN REACH. SIDE RAILS UP X2. BED LOW AND LOCKED.
[2020-05-28 08:00] VITALS: BP 130/78
[2020-05-28] MEDS ORDERED: DOXEPIN HCL25 MG PO ×2 (08:11→09:40)
[2020-05-28] MEDS ORDERED: BENICAR20 MG PO ×2 (08:20→09:39)
[2020-05-28] MEDS: ASPIRIN 81 MG CHEW TAB PO SCH (08:28)
[2020-05-28] MEDS: FUROSEMIDE 40 MG TAB PO SCH (08:28)
[2020-05-28] MEDS: PRASUGREL 10 MG TAB PO SCH (08:28)
[2020-05-28] MEDS ORDERED: OLMESARTAN 20 MG TAB PO SCH (09:00)
--- NOTE | 2020-05-28 11:16 | Discharge Summary ---
Patient of Dr. Moyer and Dr. Beltre. HOSPITAL COURSE: Charming, but unfortunate 54-year-old gentleman with history of known coronary artery disease, admitted with anterior chest pain radiating to the left shoulder associated with shortness of breath. History of diabetes, which he says is controlled with diet, history of stents placed in 2018 and 2019, vein angioplasty in the past, history suspicious for orthostatic hypotension. The patient underwent a nuclear stress test, the results are pending. This was discussed with Dr. Turk, who recommended no intervention and recommended outpatient followup. He is found to have a macrocytic anemia and fatty liver. He admitted to alcohol use. He is advised to reduce or discontinue his consumption. He did have some insomnia and depression. He was started on doxepin 25 mg at night, which he wished to continue. His amlodipine was discontinued. The dose of olmesartan was decreased to 20 mg a day. With this, his orthostatic hypotension improved. He is discharged on aspirin 81, doxepin 25 at night, Lasix 40 twice a day, Bystolic 10 mg at bedtime, Benicar 20 at bedtime, Actos 45 mg, Effient 10 mg, and Crestor 40 mg. He is discharged much improved with his consent and with the recommendations of Dr. Lois Turk, Cardiology. MD SHY Mario/MODL /[id number]
--- NOTE | 2020-05-28 13:32 | Progress Note ---
DATE: 05/28/2020 Cardiology Progress Note SUBJECTIVE: No major events overnight. No more chest pain. OBJECTIVE: VITAL SIGNS: Temperature afebrile, pulse 75, respiratory rate 14, blood pressure 110/72, and saturating 96% on room air. GENERAL: Well developed, well nourished, no acute distress. CARDIOVASCULAR: Regular rate and rhythm. No murmurs, rubs, or gallops. LUNGS: Clear to auscultation bilaterally. ABDOMEN: Soft, nontender, and nondistended. NEURO AND PSYCH: Alert and oriented to person, place, and time. Normal affect. INPATIENT MEDICATIONS: Reviewed. TELEMETRY DATA: Reviewed and personally interpreted by me, shows normal sinus rhythm. ASSESSMENT AND PLAN: 1. History of coronary artery disease, status post recent PCI. 2. Chest pain, concerning for unstable angina. PLAN: Reviewed his stress test from yesterday. Image quality is poor due to the patient's body habitus, however, demonstrates ejection fraction of 57% with no significant reversible defects. There may be area of scar in the inferior wall that appears to be chronic. Given the patient's symptoms have resolved, there is no significant reversible defect on his stress testing and troponins were negative and the patient had a recent angiogram with revascularization. The patient is okay to be discharged from cardiovascular standpoint. He can follow up in the office with Dr. Torres in 1 to 2 weeks and further testing can be performed as clinically indicated. Thank you for this consult. We will continue to follow. MD KADEEM Avendaño/LAURIL /[id number]
--- OUTSIDE RECORDS SUMMARY | 2020-05-29 18:38 | XMS REPORT | Continuity of Care Document ---
Author Author [facility] t Organization [facility] Address [address] [place] [address] Phone Unavailable Care Team Providers Care Dietician Name Role Phone Chilo MEDRANO M.D. PCP MOOKDELMY WEBER Attphys Unavailable SWEET, A CLEMENTINA Attphys Unavailable MOOKDELMY Admphys Unavailable Problems This patient has no known problems. Allergies, Adverse Reactions, Alerts This patient has no known allergies or adverse reactions. Medications Ordered Medication Name Filled Medication Name Start Date Stop Da te Current Medication? Ordering Clinician Indication Dosage Frequency Signature (SIG) Comments Components Source Allopurinol 300 Mg Tablet Allopurinol 300 Mg Tablet Yes 300 Daily [facility] Amlodipine Besylate 10 Mg Tablet Amlodipine Besylate 10 Mg Tablet Yes 10 Daily [facility] Aspirin (Aspir 81) 81 Mg Tablet. Aspirin (Aspir 81) 81 Mg Tablet. Yes 81 Daily [facility] Metformin Hcl (Metformin Hcl Er) 500 Mg Tab.er.24 Metf ormin Hcl (Metformin Hcl Er) 500 Mg Tab.er.24 Yes 1000 Twice A Day [facility] Nebivolol Hcl (Bystolic) 10 Mg Tablet Nebivolol Hcl (Bystolic) 10 M g Tablet Yes 10 Daily [facility] Olmesartan Medoxomil (Benicar) 20 Mg Tablet Olmesartan Medoxomil (Benicar) 20 Mg Tablet Yes 40 Daily [facility] Pravastatin Sodium 80 Mg Tablet Pravastatin Sodium 80 Mg Tablet Yes 80 Daily [facility] Ticagrelor (Brilinta) 90 Mg Tablet Ticagrelor (Brilinta) 90 Mg Tablet Yes 90 Daily [facility] Procedures Procedure Date / Time Performed Performing Clinician Sourc e PRQ CARD STENT W/ANGIO 1 [facility] 2018-10-17 00:00:00 SG BRUNER [facility] CORONARY ARTERY ANGIO S&I 2018-10-17 00:00:00 SG BRUNER CH, I [facility] PRQ CARD STENT W/ANGIO 1 L 2018-09-01 00:00:00 SG BRUNER [facility] R&L HRT ART/VENTRICLE ANGIO 2018-09-01 00:00:00 SG BRUNER [facility] Encounters Start Date/Time End Date/Time Encounter Type Admission Type Attendi [facility] Care Department Encounter ID Source 2019-03-05 15:18:00 2019-03-05 19:09:00 Departed Emergency Room 1 CLEMENTINA ANN [facility] [id number] [facility] 2018-10-17 06:37:00 2018-10-17 06:37:00 Registered Surgical Day Care [facility] [id number] [facility] 2018-09-01 11:25:00 2018-09-01 11:25:00 Registered Surgical Day Care [facility] [id number] [facility] Results Test Description Test Time Test Comments Results Result Comments Source US ABDOMEN LIMITED 2020-05-27 10:36:00 [facility] NISSA : 1965 Sex: M [place] [address] Patient Name: YARA BNAKS MR #: [id number] : 1965 Age/Sex: 54/M Re #: [id number] [facility] Physician: DELMY DELVALLE MD Ordered by: CHENTE BEY MD Report #: [id number] Location: MED/SURG Room/Bed: [facility] Procedure: [id number] US/US ABDOMEN LIMITED Exam Date: 05/27/20 Exam Time: 923 REPORT STATUS: Signed Abdominal Ultrasound Limited Clinical Diagnosis: Chest pain Comparison: None Technique: Multiple transaxial and longitudinal images were obtained through the abdomen with real time ultrasonography. A low frequency curvilinear transducer was utilized. Multiple images were submitted for interpretation. Report: The patient has limited mental capacity and was unable to cooperate for the exam. There was intestinal gas that interfered with the exam. Liver: The liver measures 16.9 cm in the right midaxillary line. There are no focal masses or abnormal cysts. The echogenicity is mildly increased. Gallbladder: The transverse diameter is within normal limits. The wall measures 3 mm. There are no shadowing stones visualized. There is sludge visualized. Sonographic Botello's sign is negative. Biliary tree: There is no evidence of intra or extra hepatic biliary ductal dilatation. The common bile duct measures 3 mm. Portal vein: The portal vein measures 12 mm. There is hepatopedal flow. Hepatic veins: Unremarkable. Pancreas: The pancreas shows normal echotexture and no focal masses or cysts. There is no pancreatic duct dilatation. Ascites: Absent Pleural Effusion: Absent Right kidney: The right kidney measures 12.4 cm. There is no evidence of hydronephrosis, mass, cyst. IVC/Aorta: Partially seen segments demonstrate no abnormality. Impression: Borderline hepatomegaly showing mildly increased echogenicity of the liver that could represent fatty infiltration. Signed by: Yanick Orozco MD on 05/27/2020 10:39 AM Dictated By: YANICK OROZCO MD 38 Transcribed By: YANET on 05/27/201038 COPY TO: CHENTE BEY MD CHEST SINGLE (PORTABLE) 2020-05-27 08:52:[address] [facility] CENTERName: YARA BANKS : 1965 Sex: M [place] [address] Patient Name: YARA BANKS MR #: [id number] : 1965 Age/Sex: 54/M Req #: [id number] [facility] Physician: DELMY DELVALLE MD Ordered by: CHENTE BEY MD Report #: [id number] Location: MED/SURG Room/Bed: [facility] Procedure: [id number] DX/CHEST SINGLE (PORTABLE) Exam Date: 05/27/20 Exam Time: 0530 REPORT STATUS: Signed X-ray chest frontal view History: Chest pain Comparison: None Findings: Lines and tubes: Not applicable Central airways: Unremarkable Cardiac silhouette: Apparently enlarged Mediastinal silhouettes: Unremarkable for the technique Pleura: No pleural effusion, pneumothorax or thickening Diaphragms: Unremarkable Lungs: Crowding of the vascular markings likely because of the poor inspiratory effort but no definite focal lung disease. Skeletal structures: Unremarkable Extrathoracic soft tissues: Unremarkable Impression: No acute cardiopulmonary disease on this exam Signed by: Yanick Orozco MD on 05/27/2020 8:53 AM Dictated By: YANICK OROZCO MD 2 Transcribed By: YANET on 05/27/20852 COPY TO: CHENTE BEY MD CT CHEST W 2020-05-26 15:48:[address] [facility] CENTERName: YARA BANKS : 1965 Sex: M [place] [address] Patient Name: YARA BANKS MR #: [id number] : 1965 Age/Sex: 54/M Req #: [id number] [facility] Physician: DELMY DELVALLE MD Ordered by: EMILIE TELLO MD Report #: [id number] Location: MED/SURG Room/Bed: 108 Procedure: [id number] CT/CT CHEST W Exam Date: 05/26/20 Exam Time: 1525 REPORT STATUS: Signed EXAM: CT Chest WITH contrast- Pulmonary Embolism Protocol INDICATION: Chest pain COMPARISON: Chest radiograph 05/26/2020 TECHNIQUE: Chest was scanned utilizing a multidetector helical scanner from the lung apex through the level of the diaphragm after administration of IV contrast. Thin section reconstructions were obtained with special concentration on the pulmonary arteries. Coronal and sagittal reformations were obtained. Pulmonary embolism protocol was performed. IV CONTRAST: 100 cc of Isovue 370 RADIATION DOSE: Total DLP: 630 mGy*cm Dose modulation, iterative reconstruction, and/or weight based adjustment of the mA/kV was utilized to reduce the radiation dose to as low as reasonably achievable. COMPLICATIONS: None FINDINGS: LINES/ TUBES: None. PULMONARY ARTERIES: No filling defect is identified within the pulmonary arteries to the segmental level. The subsegmental pulmonary arteries are not well opacified. Main pulmonary artery measures 2.6 cm in diameter. LUNGS AND AIRWAYS: The central airways are patent. No focal consolidation or pulmonary edema. Mild dependent right basilar subsegmental atelectasis. PLEURA: The pleural spaces are clear. HEART AND MEDIASTINUM: The thyroid gland is normal. No mediastinal, hilar or axillary lymphadenopathy. The heart is normal in size.. There is no pericardial effusion. UPPER ABDOMEN: Nonobstructive 3 mm right upper pole renal calculus. No other acute findings in the upper abdomen. BONES: The visualized bony thorax is within normal limits. SOFT TISSUES: Unremarkable. IMPRESSION: No pulmonary embolism. No focal pneumonia or pulmonary edema. 3 mm right upper pole renal calculus. Signed by: Pepe Ball MD on 05/26/2020 3:51 PM Dictated By: PEPE BALL MD 50 Transcribed By: YANET on 05/26/201550 COPY TO: EMILIE TELLO MD CHEST SINGLE (PORTABLE) 2020-05-26 03:26:00 [facility] 1965 Sex: [place] [address] Patient Name: YARA BANKS MR #: [id number] : 1965 Age/Sex: 54/M Req #: [id number] Adm Physician: Ordered by: IRAM WATERS MD Report #: [id number] Location: ER Room/Bed: Procedure: [id number] DX/CHEST SINGLE (PORTABLE) Exam Date: Exam Time: REPORT STATUS: Signed EXAMINATION: CHEST SINGLE (PORTABLE) INDICATION: chest pain COMPARISON: None FINDINGS: Diffuse hazy attenuation likely related to superimposed soft tissues. Moderately enlarged cardiac silhouette.. Shallow lung volumes accentuate heart size and interstitial pulmonary markings. Otherwise, no consolidation. No pleural effusion. No pneumothorax. IMPRESSION: Moderate cardiomegaly. No edema or consolidation. Signed by: Radha Dwyer MD on 05/26/2020 3:35 AM Dictated By: RADHA DWYER MD 4 Transcribed By: YANET on 05/26/20334 COPY TO: IRAM WATERS MD HIP RIGHT 2-3 VW (+/- PELVIS) 2019-03-05 16:42:00 [address] [place], [place] [address] Patient Name: YARA BANKS MR #: [id number] : 1965 Age/Sex: 53/M Req #: [id number] Adm Physician: Ordered by: CLEMENTINA ANN MD Report #: [id number] Location: ER Room/Bed: Procedure: [id number] DX/HIP RIGHT 2-3 VW (+/- PELVIS) Exam Date: Exam Time: REPORT STATUS: Signed EXAMINATION: HIP RIGHT 2-3 VW (+/- PELVIS) INDICATION: Right hip pain COMPARISON: None FINDINGS: 2 views of the right hip and pelvis demonstrate no acute fracture or dislocation. Alignment is anatomic. No substantial degenerative changes. IMPRESSION: No acute osseous injury. Signed by: Pepe Ball MD on 03/05/2019 4:42 PM Dictated By: PEPE BALL MD 41 Transcribed By: YANET on 03/05/191641 COPY TO: CLEMENTINA ANN MD Sodium Level 2018-10-16 11:22:00 Test Item Sodium Level (test code = 2951-2) 135 136-145 L [facility]Potassium Thiow5010-79-14 11:22:00* Test Item Value Reference Range Interpretation Comments Potassium Level (test code = 2823-3) 4.2 3.5-5.1 [facility] [place] [facility] ResourcesChloride Qbolm0190-74-50 11:22:00* Test Item Value Reference Range Interpretation Comments Chloride Level (test code = 2075-0) 105 98-107 [facility] ResourcesCarbon Dioxide Xtxan2047-15-77 11:22:00* Test Item Value Reference Range Interpretation Comments Carbon Dioxide Level (test code = 2028-9) 22 - [facility] [place] [facility] ResourcesAnion Juu8947-10-03 11:22:00* Test Item Value Reference Range Interpretation Comments Anion Gap (test code = 43670-4) 12.2 8-16 [facility] [place] [facility] ResourcesBlood Urea Ekwopenm8699-48-73 11:22:00* Test Item Value Reference Range Interpretation Comments Blood Urea Nitrogen (test code = 3094-0) 12 - [facility] [place] [facility] ResourcesCreatinine2019-03-25 11:22:00* Test Item Value Reference Range Interpretation Comments Creatinine (test code = 2160-0) 0.87 0.72-1.25 [facility] [place] [facility] ResourcesBUN/Creatinine Wicds9673-00-58 11:22:00* Test Item Value Reference Range Interpretation Comments BUN/Creatinine Ratio (test code = 3097-3) 14 01-16 [facility] [place] [facility] ResourcesEstimat Glomerular Filtration Rate 2018-10-16 11:22:00* Test Item Value Reference Range Interpretation Comments Estimat Glomerular Filtration Rate (test code = 786729679) > 60 >60 Ranges were taken from the National Kidney Disease Education Program and the [facility] literature.Reference ranges:60 or greater: Azicju91-70 ( for 3 consecutive months): Chronic kidney disease 15 or less: Kidney failureJoint [facility] between [facility] [place] [facility] ResourcesGlucose Nbwbt2174-83-01 11:22:00* Test Item Value Reference Range Interpretation Comments Glucose Level (test code = MTM8658) 111 74-118 [facility] [place] [facility] ResourcesCalcium Jfvdd1297-53-09 11:22:00* Test Item Value Reference Range Interpretation Comments Calcium Level (test code = 39662-3) 9.7 8.4-10.2 [facility] [place] [facility] ResourcesTotal Couxzaovb4323-12-81 11:22:00* Test Item Value Reference Range Interpretation Comments Total Bilirubin (test code = 1975-2) 0.3 0.2-1.2 [facility] [place] [facility] ResourcesAspartate Amino Transf (AST/SGOT) 2018-10-16 11:22:00* Test Item Value Reference Range Interpretation Comments Aspartate Amino Transf (AST/SGOT) (test code = Aspartate Amino Transf (AST/SGOT)) 25 5-34 [facility] [place] [facility] ResourcesAlanine Aminotransferase (ALT/SGPT) 2018-10-16 11:22:00* Test Item Value Reference Range Interpretation Comments Alanine Aminotransferase (ALT/SGPT) (test code = 1742-6) 39 0-55 [facility] [place] [facility] ResourcesTotal Bckvluf9504-92-21 11:22:00* Test Item Value Reference Range Interpretation Comments Total Protein (test code = 2885-2) 7.6 6.5-8.1 [facility] [place] [facility] ResourcesAlbumin2019-03-25 11:22:00* Test Item Value Reference Range Interpretation Comments Albumin (test code = 1751-7) 3.8 3.5-5.0 [facility] [place] [facility] ResourcesGlobulin2019-03-25 11:22:00* Test Item Value Reference Range Interpretation Comments Globulin (test code = 13474-9) 3.8 2.3-3.5 H [facility] [place] [facility] ResourcesAlbumin/Globulin Wlzsf2753-50-01 11:22:00 * Test Item Value Reference Range Interpretation Comments Albumin/Globulin Ratio (test code = 1759-0) 1.0 0.8-2.0 [facility] [place] [facility] ResourcesAlkaline Smwmzhmicgi5432-79-93 11:22:00* Test Item Value Reference Range Interpretation Comments Alkaline Phosphatase (test code = 6768-6) 62 40-150 [facility] [place] [facility] ResourcesWhite Blood Aydpo3863-42-48 11:04:00* Test Item Value Reference Range Interpretation Comments White Blood Count (test code = 6690-2) 5.31 4.8-10.8 [facility] [place] [facility] ResourcesRed Blood Plntt8887-35-57 11:04:00* Test Item Value Reference Range Interpretation Comments Red Blood Count (test code = 789-8) 4.30 4.3-5.7 [facility] [place] [facility] ResourcesHemoglobin2019-03-25 11:04:00* Test Item Value Reference Range Interpretation Comments Hemoglobin (test code = 60729-6) 14.2 14.0-18.0 [facility] [place] [facility] ResourcesHematocrit2019-03-25 11:04:00* Test Item Value Reference Range Interpretation Comments Hematocrit (test code = 4544-3) 42.5 38.2-49.6 [facility] [place] [facility] ResourcesMean Corpuscular Uohzof3802-26-49 11:04:00* Test Item Value Reference Range Interpretation Comments Mean Corpuscular Volume (test code = 787-2) 98.8 81-99 [facility] [place] [facility] ResourcesMean Corpuscular Argzifzqgq5174-84-09 11:04:00* Test Item Value Reference Range Interpretation Comments Mean Corpuscular Hemoglobin (test code = 785-6) 33.0 28-32 H [facility] [place] [facility] ResourcesMean Corpuscular Hemoglobin Concent 2018-10-16 11:04:00* Test Item Value Reference Range Interpretation Comments Mean Corpuscular Hemoglobin Concent (test code = 786-4) 33.4 31-35 [facility] [place] [facility] ResourcesRed Cell Distribution Xwkfz7694-81-79 11:04:00* Test Item Value Reference Range Interpretation Comments Red Cell Distribution Width (test code = 20593-6) 13.7 11.7 -14.4 [facility] [place] [facility] ResourcesPlatelet Bjsfx1756-75-40 11:04:00* Test Item Value Reference Range Interpretation Comments Platelet Count (test code = 777-3) 197 140-360 [facility] [place] [facility] ResourcesNeutrophils (%) (Auto)2018-10-16 11:04:00 * Test Item Value Reference Range Interpretation Comments Neutrophils (%) (Auto) (test code = 18097-7) 56.0 38.7-80.0 [facility] [place] [facility] ResourcesLymphocytes (%) (Auto)2018-10-16 11:04:00 * Test Item Value Reference Range Interpretation Comments Lymphocytes (%) (Auto) (test code = 736-9) 30.9 18.0-39.1 [facility] [place] [facility] ResourcesMonocytes (%) (Auto)2018-10-16 11:04:00* Test Item Value Reference Range Interpretation Comments Monocytes (%) (Auto) (test code = 5905-5) 10.2 4.4-11.3 [facility] [place] [facility] ResourcesEosinophils (%) (Auto)2018-10-16 11:04:00 * Test Item Value Reference Range Interpretation Comments Eosinophils (%) (Auto) (test code = 713-8) 1.9 0.0-6.0 [facility] [place] [facility] ResourcesBasophils (%) (Auto)2018-10-16 11:04:00* Test Item Value Reference Range Interpretation Comments Basophils (%) (Auto) (test code = 706-2) 0.6 0.0-1.0 [facility] [place] [facility] ResourcesIM GRANULOCYTES %2018-10-16 11:04:00* Test Item Value Reference Range Interpretation Comments IM GRANULOCYTES % (test code = IM GRANULOCYTES %) 0.4 0.0- 1.0 [facility] [place] [facility] ResourcesNeutrophils # (Auto)2018-10-16 11:04:00* Test Item Value Reference Range Interpretation Comments Neutrophils # (Auto) (test code = 751-8) 3.0 2.1-6.9 [facility] [place] [facility] ResourcesLymphocytes # (Auto)2018-10-16 11:04:00* Test Item Value Reference Range Interpretation Comments Lymphocytes # (Auto) (test code = 91128-8) 1.6 1.0-3.2 [facility] [place] [facility] ResourcesMonocytes # (Auto)2018-10-16 11:04:00* Test Item Value Reference Range Interpretation Comments Monocytes # (Auto) (test code = 742-7) 0.5 0.2-0.8 [facility] [place] [facility] ResourcesEosinophils # (Auto)2018-10-16 11:04:00* Test Item Value Reference Range Interpretation Comments Eosinophils # (Auto) (test code = 711-2) 0.1 0.0-0.4 [facility] [place] [facility] ResourcesBasophils # (Auto)2018-10-16 11:04:00* Test Item Value Reference Range Interpretation Comments Basophils # (Auto) (test code = 704-7) 0.0 0.0-0.1 [facility] [place] [facility] ResourcesAbsolute Immature Granulocyte (auto 2018-10-16 11:04:00* Test Item Value Reference Range Interpretation Comments Absolute Immature Granulocyte (auto (carmen t code = Absolute Immature Granulocyte (auto) 0.02 0-0.1 [facility] [place] [facility] ResourcesTriglycerides Atwfg9203-21-75 14:18:00* Test Item Value Reference Range Interpretation Comments Triglycerides Level (test code = 2571-8) 181 0-149 H [facility] [place] [facility] ResourcesCholesterol Uuits4265-56-22 14:18:00* Test Item Value Reference Range Interpretation Comments Cholesterol Level (test code = 2093-3) 161 0-199 Less than 200 mg/dL Low Cjsq295 - 239 mg/dL Borderline Fetl845 m g/dl and greater High Risk [facility] [place] [facility] ResourcesLDL Xcxumnefkja9241-34-30 14:18:00* Test Item Value Reference Range Interpretation Comments LDL Cholesterol (test code = 2089-1) 79 60-130 [facility] [place] [facility] ResourcesHDL Mbambvoxpgb7924-55-54 14:18:00* Test Item Value Reference Range Interpretation Comments HDL Cholesterol (test code = 2085-9) 46 40-60 [facility] [place] [facility] ResourcesCholesterol/HDL Javkn4705-39-29 14:18:00 * Test Item Value Reference Range Interpretation Comments Cholesterol/HDL Ratio (test code = 9830-1) 3.5 3.9-4.7 L [facility]
--- OUTSIDE RECORDS SUMMARY | 2020-05-29 18:38 | XMS REPORT | Continuity of Care Document ---
Author Author [facility] t Organization [facility] Address 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 PCP [...] Allopurinol 300 Mg Tablet Yes 300 Daily [facility] Amlodipine Besylate 10 Mg Tablet Amlodipine Besylate 10 Mg Tablet Yes 10 Daily [facility] Aspirin (Aspir 81) 81 Mg Tablet. Aspirin (Aspir 81) 81 Mg Tablet. Yes 81 Daily [facility] Metformin Hcl (Metformin Hcl Er) 500 Mg Tab.er.24 Metf ormin Hcl (Metformin Hcl Er) 500 Mg Tab.er.24 Yes 1000 Twice A Day [facility] Nebivolol Hcl (Bystolic) 10 Mg Tablet Nebivolol Hcl (Bystolic) 10 M g Tablet Yes 10 Daily [facility] Olmesartan Medoxomil (Benicar) 20 Mg Tablet Olmesartan Medoxomil (Benicar) 20 Mg Tablet Yes 40 Daily [facility] Pravastatin Sodium 80 Mg Tablet Pravastatin Sodium 80 Mg Tablet Yes 80 Daily [facility] Ticagrelor (Brilinta) 90 Mg Tablet Ticagrelor (Brilinta) 90 Mg Tablet Yes 90 Daily [facility] Procedures Procedure Date / Time Performed Performing Clinician Sourc e PRQ CARD STENT W/ANGIO 1 [facility] 2018-10-17 00:00:00 SG BRUNER [facility] CORONARY ARTERY ANGIO S&I 2018-10-17 00:00:00 SG BRUNER CH, I [facility] PRQ CARD STENT W/ANGIO 1 L 2018-09-01 00:00:00 SG BRUNER [facility] R&L HRT ART/VENTRICLE ANGIO 2018-09-01 00:00:00 SG BRUNER [facility] Encounters Start Date/Time End Date/Time Encounter Type Admission Type [facility] Care Department Encounter ID Source 2019-03-05 15:18:00 2019-03-05 19:09:00 Departed Emergency Room [address] [facility] [id number] [facility] 2018-10-17 06:37:00 2018-10-17 06:37:00 [facility] [facility] [id number] [facility] 2018-09-01 11:25:00 2018-09-01 11:25:00 [address] [facility] [id number] [facility] Results Test Description Test Time Test Comments Results Result Comments Source US ABDOMEN LIMITED 2020-05-27 10:36:00 [facility] 1965 Sex: [place] [address] Patient Name: YARA BANKS MR #: [id number] : 1965 Age/Sex: 54/M Re #: [id number] [facility] Physician: DELMY DELVALLE MD Ordered by: CHENTE BEY MD Report #: [id number] Location: MED/SURG Room/Bed: [facility] Procedure: [id number] US/US ABDOMEN LIMITED Exam Date: 05/27/20 Exam [...] MD CHEST SINGLE (PORTABLE) 2020-05-27 08:52:00 [facility] 1965 Sex: [place] [address] Patient Name: YARA BANKS MR #: [id number] : 1965 Age/Sex: 54/M Req #: [id number] [facility] Physician: DELMY DELVALLE MD Ordered by: CHENTE BEY MD Report #: [id number] Location: MED/SURG Room/Bed: [facility] Procedure: [id number] DX/CHEST SINGLE (PORTABLE) Exam Date: 05/27/20 Exam [...] MD CT CHEST W 2020-05-26 15:48:00 [facility] : 1965 Sex: [place] [address] Patient Name: YARA BANKS MR #: [id number] : 1965 Age/Sex: 54/M Req #: [id number] [facility] Physician: DELMY DELVALLE MD Ordered by: EMILIE TELLO MD Report #: [id number] Location: MED/SURG Room/Bed: 108 Procedure: [id number] CT/CT CHEST W Exam Date: 05/26/20 Exam [...] MD CHEST SINGLE (PORTABLE) 2020-05-26 03:26:00 [facility] 1965 Sex: [place] [address] Patient Name: YARA BANKS MR #: [id number] : 1965 Age/Sex: 54/M Req #: [id number] Adm Physician: Ordered by: IRAM WATERS MD Report #: [id number] Location: ER Room/Bed: Procedure: [id number] DX/CHEST SINGLE (PORTABLE) Exam Date: Exam Time: [...] RIGHT 2-3 VW (+/- PELVIS) 2019-03-05 16:42:00 [address] [place], [place] [address] Patient Name: YARA BANKS MR #: [id number] : 1965 Age/Sex: 53/M Req #: [id number] Adm Physician: Ordered by: CLEMENTINA ANN MD Report #: [id number] Location: ER Room/Bed: Procedure: [id number] DX/HIP RIGHT 2-3 VW (+/- PELVIS) Exam [...] (test code = 2951-2) 135 136-145 L [facility] CenterPotassium Vhvrp0575-98-82 11:22:00* Test Item Value Reference Range Interpretation Comments Potassium Level (test code = 2823-3) 4.2 3.5-5.1 [facility] CenterChloride Gtkmj5365-18-10 11:22:00* Test Item Value Reference Range Interpretation Comments Chloride Level (test code = 2075-0) 105 98-107 [facility] CenterCarbon Dioxide Zgzbq3443-23-15 11:22:00* Test Item Value Reference Range Interpretation Comments Carbon Dioxide Level (test code = 2028-9) 22 - [facility] CenterAnion Xuy7302-00-99 11:22:00* Test Item Value Reference Range Interpretation Comments Anion Gap (test code = 09131-3) 12.2 8-16 [facility] CenterBlood Urea Kvumkjjn4003-92-17 11:22:00* Test Item Value Reference Range Interpretation Comments Blood Urea Nitrogen (test code = 3094-0) 12 - [facility] CenterCreatinine2019-03-25 11:22:00* Test Item Value Reference Range Interpretation Comments Creatinine (test code = 2160-0) 0.87 0.72-1.25 [facility] CenterBUN/Creatinine Wkdxj6951-74-53 11:22:00* Test Item Value Reference Range Interpretation Comments BUN/Creatinine Ratio (test code = 3097-3) 14 01-16 [facility] CenterEstimat Glomerular Filtration Rate 2018-10-16 11:22:00* Test Item Value Reference Range Interpretation Comments Estimat Glomerular Filtration Rate (test code = 997108652) > 60 >60 Ranges were taken from the National Kidney Disease Education Program and the [facility] [employer] literature.Reference ranges:60 or greater: Nygjza92-02 ( for 3 consecutive months): Chronic kidney disease 15 or less: Kidney failureSaint [facility]'s Round [facility] Medical CenterGlucose Ghzkd7411-44-37 11:22:00* Test Item Value Reference Range Interpretation Comments Glucose Level (test code = CRZ9357) 111 74-118 [facility] CenterCalcium Pmzry3974-21-58 11:22:00* Test Item Value Reference Range Interpretation Comments Calcium Level (test code = 87853-8) 9.7 8.4-10.2 [facility] CenterTotal Uvxflawes3073-42-28 11:22:00* Test Item Value Reference Range Interpretation Comments Total Bilirubin (test code = 1975-2) 0.3 0.2-1.2 [facility] CenterAspartate Amino Transf (AST/SGOT) 2018-10-16 11:22:00* Test Item Value Reference Range Interpretation Comments Aspartate Amino Transf (AST/SGOT) (test code = Aspartate Amino Transf (AST/SGOT)) 25 5-34 [facility] CenterAlanine Aminotransferase (ALT/SGPT) 2018-10-16 11:22:00* Test Item Value Reference Range Interpretation Comments Alanine Aminotransferase (ALT/SGPT) (test code = 1742-6) 39 0-55 [facility] CenterTotal Dkccfwm7010-78-70 11:22:00* Test Item Value Reference Range Interpretation Comments Total Protein (test code = 2885-2) 7.6 6.5-8.1 [facility] CenterAlbumin2019-03-25 11:22:00* Test Item Value Reference Range Interpretation Comments Albumin (test code = 1751-7) 3.8 3.5-5.0 [facility] CenterGlobulin2019-03-25 11:22:00* Test Item Value Reference Range Interpretation Comments Globulin (test code = 94699-1) 3.8 2.3-3.5 H [facility] CenterAlbumin/Globulin Wruoa3706-34-09 11:22:00 * Test Item Value Reference Range Interpretation Comments Albumin/Globulin Ratio (test code = 1759-0) 1.0 0.8-2.0 [facility] CenterAlkaline Ibrxnqqhhhb5559-45-95 11:22:00* Test Item Value Reference Range Interpretation Comments Alkaline Phosphatase (test code = 6768-6) 62 40-150 [facility] CenterWhite Blood Mcuwx0183-10-39 11:04:00* Test Item Value Reference Range Interpretation Comments White Blood Count (test code = 6690-2) 5.31 4.8-10.8 [facility] CenterRed Blood Tyrtq7278-32-62 11:04:00* Test Item Value Reference Range Interpretation Comments Red Blood Count (test code = 789-8) 4.30 4.3-5.7 [facility] CenterHemoglobin2019-03-25 11:04:00* Test Item Value Reference Range Interpretation Comments Hemoglobin (test code = 80323-7) 14.2 14.0-18.0 [facility] CenterHematocrit2019-03-25 11:04:00* Test Item Value Reference Range Interpretation Comments Hematocrit (test code = 4544-3) 42.5 38.2-49.6 [facility] CenterMean Corpuscular Xwtble6088-38-84 11:04:00* Test Item Value Reference Range Interpretation Comments Mean Corpuscular Volume (test code = 787-2) 98.8 81-99 [facility] CenterMean Corpuscular Npcpyuqgoa8782-29-37 11:04:00* Test Item Value Reference Range Interpretation Comments Mean Corpuscular Hemoglobin (test code = 785-6) 33.0 28-32 H [facility] CenterMean Corpuscular Hemoglobin Concent 2018-10-16 11:04:00* Test Item Value Reference Range Interpretation Comments Mean Corpuscular Hemoglobin Concent (test code = 786-4) 33.4 31-35 [facility] CenterRed Cell Distribution Kacmm1574-87-71 11:04:00* Test Item Value Reference Range Interpretation Comments Red Cell Distribution Width (test code = 76106-0) 13.7 11.7 -14.4 [facility] CenterPlatelet Bwojq2903-82-27 11:04:00* Test Item Value Reference Range Interpretation Comments Platelet Count (test code = 777-3) 197 140-360 [facility] CenterNeutrophils (%) (Auto)2018-10-16 11:04:00 * Test Item Value Reference Range Interpretation Comments Neutrophils (%) (Auto) (test code = 87683-4) 56.0 38.7-80.0 [facility] CenterLymphocytes (%) (Auto)2018-10-16 11:04:00 * Test Item Value Reference Range Interpretation Comments Lymphocytes (%) (Auto) (test code = 736-9) 30.9 18.0-39.1 [facility] CenterMonocytes (%) (Auto)2018-10-16 11:04:00* Test Item Value Reference Range Interpretation Comments Monocytes (%) (Auto) (test code = 5905-5) 10.2 4.4-11.3 [facility] CenterEosinophils (%) (Auto)2018-10-16 11:04:00 * Test Item Value Reference Range Interpretation Comments Eosinophils (%) (Auto) (test code = 713-8) 1.9 0.0-6.0 [facility] CenterBasophils (%) (Auto)2018-10-16 11:04:00* Test Item Value Reference Range Interpretation Comments Basophils (%) (Auto) (test code = 706-2) 0.6 0.0-1.0 [facility] CenterIM GRANULOCYTES %2018-10-16 11:04:00* Test Item Value Reference Range Interpretation Comments IM GRANULOCYTES % (test code = IM GRANULOCYTES %) 0.4 0.0- 1.0 [facility] CenterNeutrophils # (Auto)2018-10-16 11:04:00* Test Item Value Reference Range Interpretation Comments Neutrophils # (Auto) (test code = 751-8) 3.0 2.1-6.9 [facility] CenterLymphocytes # (Auto)2018-10-16 11:04:00* Test Item Value Reference Range Interpretation Comments Lymphocytes # (Auto) (test code = 73881-7) 1.6 1.0-3.2 [facility] CenterMonocytes # (Auto)2018-10-16 11:04:00* Test Item Value Reference Range Interpretation Comments Monocytes # (Auto) (test code = 742-7) 0.5 0.2-0.8 [facility] CenterEosinophils # (Auto)2018-10-16 11:04:00* Test Item Value Reference Range Interpretation Comments Eosinophils # (Auto) (test code = 711-2) 0.1 0.0-0.4 [facility] CenterBasophils # (Auto)2018-10-16 11:04:00* Test Item Value Reference Range Interpretation Comments Basophils # (Auto) (test code = 704-7) 0.0 0.0-0.1 [facility] CenterAbsolute Immature Granulocyte (auto 2018-10-16 11:04:00* Test Item Value Reference Range Interpretation Comments Absolute Immature Granulocyte (auto (carmen t code = Absolute Immature Granulocyte (auto) 0.02 0-0.1 [facility] CenterTriglycerides Toajz1469-75-65 14:18:00* Test Item Value Reference Range Interpretation Comments Triglycerides Level (test code = 2571-8) 181 0-149 H [facility] CenterCholesterol Nwqog3691-14-28 14:18:00* Test Item Value Reference Range Interpretation Comments Cholesterol Level (test code = 2093-3) 161 0-199 Less than 200 mg/dL Low Ebww397 - 239 mg/dL Borderline Tyfr375 m g/dl and greater High Risk [facility] CenterLDL Ghdkrpnxhzf5542-69-36 14:18:00* Test Item Value Reference Range Interpretation Comments LDL Cholesterol (test code = 2089-1) 79 60-130 [facility] CenterHDL Dnthgywkupe2868-89-43 14:18:00* Test Item Value Reference Range Interpretation Comments HDL Cholesterol (test code = 2085-9) 46 40-60 [facility] CenterCholesterol/HDL Vzcvb0366-38-68 14:18:00 * Test Item Value Reference Range Interpretation Comments Cholesterol/HDL Ratio (test code = 9830-1) 3.5 3.9-4.7 L [facility]
== END 2020-05-28 10:41 | disposition home or self-care (01) ==
LOC: ER 02:48 → ERHOLD 03:52 → MED/SURG 04:01
PROVIDERS: ADMIT Internal Medicine; ATTEND Internal Medicine
DX: I25.110 Atherosclerotic heart disease of native coronary artery with unstable angina pectoris (principal); E11.9 Type 2 diabetes mellitus without complications; Z11.59 Encounter for screening for other viral diseases; I25.10 Atherosclerotic heart disease of native coronary artery without angina pectoris; Z95.5 Presence of coronary angioplasty implant and graft; K76.0 Fatty (change of) liver, not elsewhere classified; I95.1 Orthostatic hypotension; D64.9 Anemia, unspecified; I87.2 Venous insufficiency (chronic) (peripheral)
CPT/HCPCS: 36415 ×2; 71045 ×2; 71260; 76705; 78452; 80048; 80053; 80061 ×2; 82044; 82550; 82553; 82607; 82746; 83036; 83880; 83921; 84443; 84484; 85025 ×2; 85610; 85730; 93005; 93017; 93306; 99284; A9502; G0378 ×3; J1650 ×2; J2785; Q9967; U0002

== ENCOUNTER → 2021-04-08 | Outpatient (CLI) | payer OTHER ==
[~2021-04-08] MED LIST changes: +DOXEPIN HCL25 MG PO; +EFFIENT10 MG PO; +ULTRAM 50MG50 MG PO
[2021-04-08 18:13] LABS: BASOPHILS % 0.7 % (0.0-1.0); EOSINOPHILS # (AUTO) 0.2 (0.0-0.4); EOSINOPHILS % 3.2 % (0.0-6.0); HEMATOCRIT 38.1 % (38.2-49.6); HEMOGLOBIN 12.4 g/dL (14.0-18.0); LYMPHOCYTES # (AUTO) 1.3 (1.0-3.2); LYMPHOCYTES % 21.7 % (18.0-39.1); MEAN CORPUSCULAR HEMOGLOBIN 32.9 pg (28-32); MEAN CORPUSCULAR HGB CONC 32.5 g/dL (31-35); MEAN CORPUSCULAR VOLUME 101.1 fL (81-99); MONOCYTES # (AUTO) 0.6 (0.2-0.8); MONOCYTES % 9.6 % (4.4-11.3); NEUTROPHILS # (AUTO) 3.9 (2.1-6.9); NEUTROPHILS % 64.6 % (38.7-80.0); PLATELET COUNT 223 x10e3/uL (140-360); RED BLOOD COUNT 3.77 x10e6/uL (4.3-5.7); RED CELL DISTRIBUTION WIDTH 14.6 % (11.7-14.4)
[2021-04-08 18:33] LABS: ALBUMIN 3.6 g/dL (3.5-5.0); ANION GAP 15.9 mmol/L (8-16); CREATININE, SERUM 0.91 mg/dL (0.72-1.25); POTASSIUM 3.9 mmol/L (3.5-5.1)
== END ==
LOC: WCC 13:41
PROVIDERS: ATTEND Podiatrist
DX: E11.65 Type 2 diabetes mellitus with hyperglycemia (principal); I70.243 Atherosclerosis of native arteries of left leg with ulceration of ankle; L97.321 Non-pressure chronic ulcer of left ankle limited to breakdown of skin; I87.2 Venous insufficiency (chronic) (peripheral); I79.8 Other disorders of arteries, arterioles and capillaries in diseases classified elsewhere; R60.0 Localized edema; M1A.9XX0 Chronic gout, unspecified, without tophus (tophi); I10 Essential (primary) hypertension; I25.10 Atherosclerotic heart disease of native coronary artery without angina pectoris; D64.9 Anemia, unspecified; F32.9 Major depressive disorder, single episode, unspecified; F41.1 Generalized anxiety disorder
CPT/HCPCS: 36415; 80053; 83036; 84134; 85025; 85651; 86140

== ENCOUNTER → 2021-04-15 | Outpatient (CLI) | payer OTHER | LOC: WCC 13:24 | PROVIDERS: ATTEND Podiatrist | DX: E11.65 Type 2 diabetes mellitus with hyperglycemia (principal); L97.321 Non-pressure chronic ulcer of left ankle limited to breakdown of skin; I79.8 Other disorders of arteries, arterioles and capillaries in diseases classified elsewhere; I70.243 Atherosclerosis of native arteries of left leg with ulceration of ankle; I87.2 Venous insufficiency (chronic) (peripheral); R60.0 Localized edema; M1A.9XX0 Chronic gout, unspecified, without tophus (tophi); D64.9 Anemia, unspecified; I25.10 Atherosclerotic heart disease of native coronary artery without angina pectoris; I10 Essential (primary) hypertension; F32.9 Major depressive disorder, single episode, unspecified; F41.1 Generalized anxiety disorder ==

== ENCOUNTER → 2021-04-22 | Outpatient (CLI) | payer OTHER | LOC: WCC 14:15 | PROVIDERS: ATTEND Podiatrist | DX: E11.65 Type 2 diabetes mellitus with hyperglycemia (principal); L97.321 Non-pressure chronic ulcer of left ankle limited to breakdown of skin; I70.243 Atherosclerosis of native arteries of left leg with ulceration of ankle; I87.2 Venous insufficiency (chronic) (peripheral); I79.8 Other disorders of arteries, arterioles and capillaries in diseases classified elsewhere; R60.0 Localized edema; M1A.9XX0 Chronic gout, unspecified, without tophus (tophi); D64.9 Anemia, unspecified; I10 Essential (primary) hypertension; I25.10 Atherosclerotic heart disease of native coronary artery without angina pectoris; F32.9 Major depressive disorder, single episode, unspecified; F41.1 Generalized anxiety disorder ==

== ENCOUNTER → 2021-04-29 | Outpatient (CLI) | payer OTHER | LOC: WCC 13:50 | PROVIDERS: ATTEND Podiatrist | DX: E11.65 Type 2 diabetes mellitus with hyperglycemia (principal); L97.321 Non-pressure chronic ulcer of left ankle limited to breakdown of skin; I70.243 Atherosclerosis of native arteries of left leg with ulceration of ankle; I79.8 Other disorders of arteries, arterioles and capillaries in diseases classified elsewhere; I87.2 Venous insufficiency (chronic) (peripheral); R60.0 Localized edema; M1A.9XX0 Chronic gout, unspecified, without tophus (tophi); D64.9 Anemia, unspecified; I10 Essential (primary) hypertension; I25.10 Atherosclerotic heart disease of native coronary artery without angina pectoris; F41.1 Generalized anxiety disorder; F32.9 Major depressive disorder, single episode, unspecified | CPT/HCPCS: 87071; 87075; 87205 ==

== ENCOUNTER → 2021-05-06 | Outpatient (CLI) | payer OTHER | LOC: WCC 14:35 | PROVIDERS: ATTEND Podiatrist | DX: E11.65 Type 2 diabetes mellitus with hyperglycemia (principal); L97.321 Non-pressure chronic ulcer of left ankle limited to breakdown of skin; I87.2 Venous insufficiency (chronic) (peripheral); I70.243 Atherosclerosis of native arteries of left leg with ulceration of ankle; M1A.9XX0 Chronic gout, unspecified, without tophus (tophi); I25.10 Atherosclerotic heart disease of native coronary artery without angina pectoris; I79.8 Other disorders of arteries, arterioles and capillaries in diseases classified elsewhere; I10 Essential (primary) hypertension; D64.9 Anemia, unspecified; F41.1 Generalized anxiety disorder; F32.9 Major depressive disorder, single episode, unspecified ==

== ENCOUNTER → 2021-05-13 | Outpatient (CLI) | payer OTHER | LOC: WCC 13:07 | PROVIDERS: ATTEND Podiatrist | DX: E11.65 Type 2 diabetes mellitus with hyperglycemia (principal); I70.243 Atherosclerosis of native arteries of left leg with ulceration of ankle; L97.321 Non-pressure chronic ulcer of left ankle limited to breakdown of skin; I87.2 Venous insufficiency (chronic) (peripheral); R60.0 Localized edema; I79.8 Other disorders of arteries, arterioles and capillaries in diseases classified elsewhere; M1A.9XX0 Chronic gout, unspecified, without tophus (tophi); I25.10 Atherosclerotic heart disease of native coronary artery without angina pectoris; I10 Essential (primary) hypertension; D64.9 Anemia, unspecified; F32.9 Major depressive disorder, single episode, unspecified; F41.1 Generalized anxiety disorder ==

== ENCOUNTER → 2021-05-20 | Outpatient (CLI) | payer OTHER | LOC: WCC 13:25 | PROVIDERS: ATTEND Podiatrist | DX: E11.65 Type 2 diabetes mellitus with hyperglycemia (principal); L97.321 Non-pressure chronic ulcer of left ankle limited to breakdown of skin; I87.2 Venous insufficiency (chronic) (peripheral); R60.0 Localized edema; I79.8 Other disorders of arteries, arterioles and capillaries in diseases classified elsewhere; I70.243 Atherosclerosis of native arteries of left leg with ulceration of ankle; M1A.9XX0 Chronic gout, unspecified, without tophus (tophi); D64.9 Anemia, unspecified; I10 Essential (primary) hypertension; I25.10 Atherosclerotic heart disease of native coronary artery without angina pectoris; F32.9 Major depressive disorder, single episode, unspecified; F41.1 Generalized anxiety disorder ==

== ENCOUNTER → 2021-05-27 | Outpatient (CLI) | payer OTHER ==
[~2021-05-27] MED LIST changes: +LIDOCAINE/PRILOCAINE 2.5-2.5% KIT ONE
== END ==
LOC: WCC 15:50
PROVIDERS: ATTEND Podiatrist
DX: E11.65 Type 2 diabetes mellitus with hyperglycemia (principal); L97.321 Non-pressure chronic ulcer of left ankle limited to breakdown of skin; I87.2 Venous insufficiency (chronic) (peripheral); I70.243 Atherosclerosis of native arteries of left leg with ulceration of ankle; I79.8 Other disorders of arteries, arterioles and capillaries in diseases classified elsewhere; R60.0 Localized edema; M1A.9XX0 Chronic gout, unspecified, without tophus (tophi); I10 Essential (primary) hypertension; I25.10 Atherosclerotic heart disease of native coronary artery without angina pectoris; D64.9 Anemia, unspecified; F32.9 Major depressive disorder, single episode, unspecified; F41.1 Generalized anxiety disorder
CPT/HCPCS: 88304

== ENCOUNTER → 2021-05-28 | Outpatient (CLI) | payer OTHER ==
[~2021-05-28] MED LIST changes: -LIDOCAINE/PRILOCAINE 2.5-2.5% KIT ONE
== END ==
LOC: WCC 14:55
PROVIDERS: ATTEND Podiatrist
DX: E11.65 Type 2 diabetes mellitus with hyperglycemia (principal); I70.243 Atherosclerosis of native arteries of left leg with ulceration of ankle; L97.321 Non-pressure chronic ulcer of left ankle limited to breakdown of skin; I79.8 Other disorders of arteries, arterioles and capillaries in diseases classified elsewhere; I87.2 Venous insufficiency (chronic) (peripheral); R60.0 Localized edema; M1A.9XX0 Chronic gout, unspecified, without tophus (tophi); I10 Essential (primary) hypertension; I25.10 Atherosclerotic heart disease of native coronary artery without angina pectoris; D64.9 Anemia, unspecified; F32.9 Major depressive disorder, single episode, unspecified; F41.1 Generalized anxiety disorder

== ENCOUNTER → 2021-05-29 | Outpatient (CLI) | payer OTHER | LOC: WCC 15:07 | PROVIDERS: ATTEND Podiatrist | DX: E11.65 Type 2 diabetes mellitus with hyperglycemia (principal); I70.243 Atherosclerosis of native arteries of left leg with ulceration of ankle; L97.321 Non-pressure chronic ulcer of left ankle limited to breakdown of skin; I87.2 Venous insufficiency (chronic) (peripheral); I79.8 Other disorders of arteries, arterioles and capillaries in diseases classified elsewhere; R60.0 Localized edema; M1A.9XX0 Chronic gout, unspecified, without tophus (tophi); I10 Essential (primary) hypertension; I25.10 Atherosclerotic heart disease of native coronary artery without angina pectoris; D64.9 Anemia, unspecified; F32.9 Major depressive disorder, single episode, unspecified; F41.1 Generalized anxiety disorder ==

== ENCOUNTER → 2021-06-03 | Outpatient (CLI) | payer OTHER | LOC: WCC 13:42 | PROVIDERS: ATTEND Podiatrist | DX: E11.65 Type 2 diabetes mellitus with hyperglycemia (principal); L97.321 Non-pressure chronic ulcer of left ankle limited to breakdown of skin; I70.243 Atherosclerosis of native arteries of left leg with ulceration of ankle; I79.8 Other disorders of arteries, arterioles and capillaries in diseases classified elsewhere; I87.2 Venous insufficiency (chronic) (peripheral); R60.0 Localized edema; M1A.9XX0 Chronic gout, unspecified, without tophus (tophi); D64.9 Anemia, unspecified; I10 Essential (primary) hypertension; I25.10 Atherosclerotic heart disease of native coronary artery without angina pectoris; B96.5 Pseudomonas (aeruginosa) (mallei) (pseudomallei) as the cause of diseases classified elsewhere; F32.9 Major depressive disorder, single episode, unspecified; F41.1 Generalized anxiety disorder ==

== ENCOUNTER → 2021-06-10 | Outpatient (CLI) | payer OTHER | LOC: WCC 13:56 | PROVIDERS: ATTEND Podiatrist | DX: E11.65 Type 2 diabetes mellitus with hyperglycemia (principal); L97.321 Non-pressure chronic ulcer of left ankle limited to breakdown of skin; I70.243 Atherosclerosis of native arteries of left leg with ulceration of ankle; I79.8 Other disorders of arteries, arterioles and capillaries in diseases classified elsewhere; I87.2 Venous insufficiency (chronic) (peripheral); R60.0 Localized edema; M1A.9XX0 Chronic gout, unspecified, without tophus (tophi); D64.9 Anemia, unspecified; I10 Essential (primary) hypertension; I25.10 Atherosclerotic heart disease of native coronary artery without angina pectoris; B96.5 Pseudomonas (aeruginosa) (mallei) (pseudomallei) as the cause of diseases classified elsewhere; F32.9 Major depressive disorder, single episode, unspecified; F41.1 Generalized anxiety disorder ==

== ENCOUNTER → 2021-06-17 | Outpatient (CLI) | payer OTHER | LOC: WCC 13:51 | PROVIDERS: ATTEND Podiatrist | DX: E11.65 Type 2 diabetes mellitus with hyperglycemia (principal); L97.321 Non-pressure chronic ulcer of left ankle limited to breakdown of skin; I87.2 Venous insufficiency (chronic) (peripheral); R60.0 Localized edema; M1A.9XX0 Chronic gout, unspecified, without tophus (tophi); I79.8 Other disorders of arteries, arterioles and capillaries in diseases classified elsewhere; I25.10 Atherosclerotic heart disease of native coronary artery without angina pectoris; I10 Essential (primary) hypertension; D64.9 Anemia, unspecified; B96.5 Pseudomonas (aeruginosa) (mallei) (pseudomallei) as the cause of diseases classified elsewhere; I70.243 Atherosclerosis of native arteries of left leg with ulceration of ankle; F41.1 Generalized anxiety disorder; F32.9 Major depressive disorder, single episode, unspecified ==

== ENCOUNTER → 2021-06-24 | Outpatient (CLI) | payer OTHER ==
[~2021-06-24] MED LIST changes: +LIDOCAINE/PRILOCAINE 2.5-2.5% KIT ONE
== END ==
LOC: WCC 14:29
PROVIDERS: ATTEND Podiatrist
DX: E11.65 Type 2 diabetes mellitus with hyperglycemia (principal); I70.243 Atherosclerosis of native arteries of left leg with ulceration of ankle; L97.321 Non-pressure chronic ulcer of left ankle limited to breakdown of skin; I87.2 Venous insufficiency (chronic) (peripheral); I79.8 Other disorders of arteries, arterioles and capillaries in diseases classified elsewhere; R60.0 Localized edema; M1A.9XX0 Chronic gout, unspecified, without tophus (tophi); I10 Essential (primary) hypertension; D64.9 Anemia, unspecified; I25.10 Atherosclerotic heart disease of native coronary artery without angina pectoris; F41.1 Generalized anxiety disorder; B96.5 Pseudomonas (aeruginosa) (mallei) (pseudomallei) as the cause of diseases classified elsewhere; F32.9 Major depressive disorder, single episode, unspecified

== ENCOUNTER → 2021-06-26 | Outpatient (CLI) | payer OTHER ==
[~2021-06-26] MED LIST changes: -LIDOCAINE/PRILOCAINE 2.5-2.5% KIT ONE
== END ==
LOC: WCC 10:49
PROVIDERS: ATTEND Podiatrist
DX: T81.89XD Other complications of procedures, not elsewhere classified, subsequent encounter (principal); Y84.8 Other medical procedures as the cause of abnormal reaction of the patient, or of later complication, without mention of misadventure at the time of the procedure; E11.65 Type 2 diabetes mellitus with hyperglycemia; I70.243 Atherosclerosis of native arteries of left leg with ulceration of ankle; L97.321 Non-pressure chronic ulcer of left ankle limited to breakdown of skin; I87.2 Venous insufficiency (chronic) (peripheral); I79.8 Other disorders of arteries, arterioles and capillaries in diseases classified elsewhere; R60.0 Localized edema; M1A.9XX0 Chronic gout, unspecified, without tophus (tophi); I10 Essential (primary) hypertension; I25.10 Atherosclerotic heart disease of native coronary artery without angina pectoris; D64.9 Anemia, unspecified; F41.1 Generalized anxiety disorder; F32.9 Major depressive disorder, single episode, unspecified

== ENCOUNTER → 2021-06-29 | Outpatient (CLI) | payer OTHER | LOC: WCC 13:43 | PROVIDERS: ATTEND Internal Medicine Infectious Disease | DX: T81.89XD Other complications of procedures, not elsewhere classified, subsequent encounter (principal); Y84.8 Other medical procedures as the cause of abnormal reaction of the patient, or of later complication, without mention of misadventure at the time of the procedure; E11.65 Type 2 diabetes mellitus with hyperglycemia; I70.243 Atherosclerosis of native arteries of left leg with ulceration of ankle; L97.321 Non-pressure chronic ulcer of left ankle limited to breakdown of skin; I87.2 Venous insufficiency (chronic) (peripheral); I79.8 Other disorders of arteries, arterioles and capillaries in diseases classified elsewhere; R60.0 Localized edema; M1A.9XX0 Chronic gout, unspecified, without tophus (tophi); I10 Essential (primary) hypertension; I25.10 Atherosclerotic heart disease of native coronary artery without angina pectoris; D64.9 Anemia, unspecified; F41.1 Generalized anxiety disorder; F32.9 Major depressive disorder, single episode, unspecified | CPT/HCPCS: 87071; 87075; 87205 ==

== ENCOUNTER → 2021-07-01 | Outpatient (CLI) | payer OTHER | LOC: WCC 14:50 | PROVIDERS: ATTEND Podiatrist | DX: T81.89XD Other complications of procedures, not elsewhere classified, subsequent encounter (principal); Y84.8 Other medical procedures as the cause of abnormal reaction of the patient, or of later complication, without mention of misadventure at the time of the procedure; E11.65 Type 2 diabetes mellitus with hyperglycemia; L97.321 Non-pressure chronic ulcer of left ankle limited to breakdown of skin; I70.243 Atherosclerosis of native arteries of left leg with ulceration of ankle; I87.2 Venous insufficiency (chronic) (peripheral); I79.8 Other disorders of arteries, arterioles and capillaries in diseases classified elsewhere; R60.0 Localized edema; M1A.9XX0 Chronic gout, unspecified, without tophus (tophi); I10 Essential (primary) hypertension; D64.9 Anemia, unspecified; I25.10 Atherosclerotic heart disease of native coronary artery without angina pectoris; F32.9 Major depressive disorder, single episode, unspecified; F41.1 Generalized anxiety disorder ==

== ENCOUNTER → 2021-07-03 | Outpatient (CLI) | payer OTHER | LOC: WCC 13:10 | PROVIDERS: ATTEND Podiatrist | DX: T81.89XD Other complications of procedures, not elsewhere classified, subsequent encounter (principal); Y84.8 Other medical procedures as the cause of abnormal reaction of the patient, or of later complication, without mention of misadventure at the time of the procedure; E11.65 Type 2 diabetes mellitus with hyperglycemia; L97.321 Non-pressure chronic ulcer of left ankle limited to breakdown of skin; I87.2 Venous insufficiency (chronic) (peripheral); I70.243 Atherosclerosis of native arteries of left leg with ulceration of ankle; R60.0 Localized edema; I79.8 Other disorders of arteries, arterioles and capillaries in diseases classified elsewhere; M1A.9XX0 Chronic gout, unspecified, without tophus (tophi); I25.10 Atherosclerotic heart disease of native coronary artery without angina pectoris; D64.9 Anemia, unspecified; I10 Essential (primary) hypertension; F32.9 Major depressive disorder, single episode, unspecified; F41.1 Generalized anxiety disorder ==

== ENCOUNTER → 2021-07-06 | Outpatient (CLI) | payer OTHER | LOC: WCC 09:05 | PROVIDERS: ATTEND Plastic Surgery | DX: T81.89XD Other complications of procedures, not elsewhere classified, subsequent encounter (principal); Y84.8 Other medical procedures as the cause of abnormal reaction of the patient, or of later complication, without mention of misadventure at the time of the procedure; E11.65 Type 2 diabetes mellitus with hyperglycemia; I70.243 Atherosclerosis of native arteries of left leg with ulceration of ankle; L97.321 Non-pressure chronic ulcer of left ankle limited to breakdown of skin; I79.8 Other disorders of arteries, arterioles and capillaries in diseases classified elsewhere; I87.2 Venous insufficiency (chronic) (peripheral); R60.0 Localized edema; M1A.9XX0 Chronic gout, unspecified, without tophus (tophi); I10 Essential (primary) hypertension; D64.9 Anemia, unspecified; I25.10 Atherosclerotic heart disease of native coronary artery without angina pectoris; F41.1 Generalized anxiety disorder; F32.9 Major depressive disorder, single episode, unspecified ==

== ENCOUNTER → 2021-07-08 | Outpatient (CLI) | payer OTHER | LOC: WCC 13:24 | PROVIDERS: ATTEND Podiatrist | DX: T81.89XD Other complications of procedures, not elsewhere classified, subsequent encounter (principal); Y84.8 Other medical procedures as the cause of abnormal reaction of the patient, or of later complication, without mention of misadventure at the time of the procedure; E11.65 Type 2 diabetes mellitus with hyperglycemia; L97.321 Non-pressure chronic ulcer of left ankle limited to breakdown of skin; I87.2 Venous insufficiency (chronic) (peripheral); I70.243 Atherosclerosis of native arteries of left leg with ulceration of ankle; I79.8 Other disorders of arteries, arterioles and capillaries in diseases classified elsewhere; R60.0 Localized edema; M1A.9XX0 Chronic gout, unspecified, without tophus (tophi); D64.9 Anemia, unspecified; I10 Essential (primary) hypertension; I25.10 Atherosclerotic heart disease of native coronary artery without angina pectoris; F32.9 Major depressive disorder, single episode, unspecified; F41.1 Generalized anxiety disorder ==

== ENCOUNTER → 2021-07-10 | Outpatient (CLI) | payer OTHER | LOC: WCC 14:57 | PROVIDERS: ATTEND Podiatrist | DX: T81.89XD Other complications of procedures, not elsewhere classified, subsequent encounter (principal); Y84.8 Other medical procedures as the cause of abnormal reaction of the patient, or of later complication, without mention of misadventure at the time of the procedure; E11.65 Type 2 diabetes mellitus with hyperglycemia; L97.321 Non-pressure chronic ulcer of left ankle limited to breakdown of skin; I87.2 Venous insufficiency (chronic) (peripheral); I79.8 Other disorders of arteries, arterioles and capillaries in diseases classified elsewhere; I70.243 Atherosclerosis of native arteries of left leg with ulceration of ankle; R60.0 Localized edema; M1A.9XX0 Chronic gout, unspecified, without tophus (tophi); I25.10 Atherosclerotic heart disease of native coronary artery without angina pectoris; I10 Essential (primary) hypertension; D64.9 Anemia, unspecified; F41.1 Generalized anxiety disorder; F32.9 Major depressive disorder, single episode, unspecified ==

== ENCOUNTER → 2021-07-13 | Outpatient (CLI) | payer OTHER | LOC: WCC 09:37 | PROVIDERS: ATTEND Podiatrist | DX: T81.89XD Other complications of procedures, not elsewhere classified, subsequent encounter (principal); Y84.8 Other medical procedures as the cause of abnormal reaction of the patient, or of later complication, without mention of misadventure at the time of the procedure; E11.65 Type 2 diabetes mellitus with hyperglycemia; I87.2 Venous insufficiency (chronic) (peripheral); I79.8 Other disorders of arteries, arterioles and capillaries in diseases classified elsewhere; I70.243 Atherosclerosis of native arteries of left leg with ulceration of ankle; L97.321 Non-pressure chronic ulcer of left ankle limited to breakdown of skin; R60.0 Localized edema; M1A.9XX0 Chronic gout, unspecified, without tophus (tophi); I10 Essential (primary) hypertension; D64.9 Anemia, unspecified; I25.10 Atherosclerotic heart disease of native coronary artery without angina pectoris; F32.9 Major depressive disorder, single episode, unspecified; F41.1 Generalized anxiety disorder ==

== ENCOUNTER → 2021-07-15 | Outpatient (CLI) | payer OTHER | LOC: WCC 14:18 | PROVIDERS: ATTEND Podiatrist | DX: T81.89XD Other complications of procedures, not elsewhere classified, subsequent encounter (principal); Y84.8 Other medical procedures as the cause of abnormal reaction of the patient, or of later complication, without mention of misadventure at the time of the procedure; E11.65 Type 2 diabetes mellitus with hyperglycemia; L97.321 Non-pressure chronic ulcer of left ankle limited to breakdown of skin; I87.2 Venous insufficiency (chronic) (peripheral); I79.8 Other disorders of arteries, arterioles and capillaries in diseases classified elsewhere; I70.243 Atherosclerosis of native arteries of left leg with ulceration of ankle; R60.0 Localized edema; M1A.9XX0 Chronic gout, unspecified, without tophus (tophi); I10 Essential (primary) hypertension; I25.10 Atherosclerotic heart disease of native coronary artery without angina pectoris; D64.9 Anemia, unspecified; F32.9 Major depressive disorder, single episode, unspecified; F41.1 Generalized anxiety disorder ==

== ENCOUNTER → 2021-07-20 | Outpatient (CLI) | payer OTHER | LOC: WCC 13:15 | PROVIDERS: ATTEND Podiatrist | DX: T81.89XD Other complications of procedures, not elsewhere classified, subsequent encounter (principal); Y84.8 Other medical procedures as the cause of abnormal reaction of the patient, or of later complication, without mention of misadventure at the time of the procedure; E11.65 Type 2 diabetes mellitus with hyperglycemia; L97.321 Non-pressure chronic ulcer of left ankle limited to breakdown of skin; I87.2 Venous insufficiency (chronic) (peripheral); I79.8 Other disorders of arteries, arterioles and capillaries in diseases classified elsewhere; I70.243 Atherosclerosis of native arteries of left leg with ulceration of ankle; R60.0 Localized edema; M1A.9XX0 Chronic gout, unspecified, without tophus (tophi); I25.10 Atherosclerotic heart disease of native coronary artery without angina pectoris; I10 Essential (primary) hypertension; D64.9 Anemia, unspecified; F41.1 Generalized anxiety disorder; F32.9 Major depressive disorder, single episode, unspecified ==

== ENCOUNTER → 2021-07-23 | Outpatient (CLI) | payer OTHER | LOC: WCC 13:00 | PROVIDERS: ATTEND Podiatrist | DX: T81.89XD Other complications of procedures, not elsewhere classified, subsequent encounter (principal); Y84.8 Other medical procedures as the cause of abnormal reaction of the patient, or of later complication, without mention of misadventure at the time of the procedure; E11.65 Type 2 diabetes mellitus with hyperglycemia; I70.243 Atherosclerosis of native arteries of left leg with ulceration of ankle; L97.321 Non-pressure chronic ulcer of left ankle limited to breakdown of skin; I79.8 Other disorders of arteries, arterioles and capillaries in diseases classified elsewhere; I87.2 Venous insufficiency (chronic) (peripheral); R60.0 Localized edema; M1A.9XX0 Chronic gout, unspecified, without tophus (tophi); I10 Essential (primary) hypertension; D64.9 Anemia, unspecified; I25.10 Atherosclerotic heart disease of native coronary artery without angina pectoris; F41.1 Generalized anxiety disorder; F32.9 Major depressive disorder, single episode, unspecified ==

== ENCOUNTER → 2021-08-05 | Outpatient (CLI) | payer OTHER | LOC: WCC 14:13 | PROVIDERS: ATTEND Podiatrist | DX: T81.89XD Other complications of procedures, not elsewhere classified, subsequent encounter (principal); Y84.8 Other medical procedures as the cause of abnormal reaction of the patient, or of later complication, without mention of misadventure at the time of the procedure; E11.65 Type 2 diabetes mellitus with hyperglycemia; L97.321 Non-pressure chronic ulcer of left ankle limited to breakdown of skin; L95.8 Other vasculitis limited to the skin; I87.2 Venous insufficiency (chronic) (peripheral); R60.0 Localized edema; M1A.9XX0 Chronic gout, unspecified, without tophus (tophi); I79.8 Other disorders of arteries, arterioles and capillaries in diseases classified elsewhere; I70.243 Atherosclerosis of native arteries of left leg with ulceration of ankle; I10 Essential (primary) hypertension; I25.10 Atherosclerotic heart disease of native coronary artery without angina pectoris; D64.9 Anemia, unspecified; F32.9 Major depressive disorder, single episode, unspecified; F41.1 Generalized anxiety disorder ==

== ENCOUNTER → 2021-08-26 | Outpatient (CLI) | payer OTHER ==
[~2021-08-26] MED LIST changes: +FLUOCINONIDE 0.05% 1 EA/15 GM TUBE ONE; +MUPIROCIN 2% OINT 22 GM TUBE ONE
== END ==
LOC: WCC 14:37
PROVIDERS: ATTEND Podiatrist
DX: T81.89XD Other complications of procedures, not elsewhere classified, subsequent encounter (principal); Y84.8 Other medical procedures as the cause of abnormal reaction of the patient, or of later complication, without mention of misadventure at the time of the procedure; E11.65 Type 2 diabetes mellitus with hyperglycemia; L97.321 Non-pressure chronic ulcer of left ankle limited to breakdown of skin; I70.243 Atherosclerosis of native arteries of left leg with ulceration of ankle; I87.2 Venous insufficiency (chronic) (peripheral); I79.8 Other disorders of arteries, arterioles and capillaries in diseases classified elsewhere; R60.0 Localized edema; M1A.9XX0 Chronic gout, unspecified, without tophus (tophi); I10 Essential (primary) hypertension; I25.10 Atherosclerotic heart disease of native coronary artery without angina pectoris; D64.9 Anemia, unspecified; F32.9 Major depressive disorder, single episode, unspecified; F41.1 Generalized anxiety disorder

== ENCOUNTER → 2021-09-09 | Outpatient (CLI) | payer OTHER ==
[~2021-09-09] MED LIST changes: +COMBIVENT RESPIM4 GM IH; +CYCLOBENZAPRINE10 MG PO; -FLUOCINONIDE 0.05% 1 EA/15 GM TUBE ONE; +GABAPENTIN400 MG PO; +HYDROCODON-ACE1 EAC9 PO; +METOPROLOL SUCC50 MG PO; -MUPIROCIN 2% OINT 22 GM TUBE ONE; +SERTRALINE HCL100 MG PO; +TRAZODONE HCL100 MG PO
== END ==
LOC: WCC 14:38
PROVIDERS: ATTEND Podiatrist
DX: T81.89XD Other complications of procedures, not elsewhere classified, subsequent encounter (principal); Y84.8 Other medical procedures as the cause of abnormal reaction of the patient, or of later complication, without mention of misadventure at the time of the procedure; E11.65 Type 2 diabetes mellitus with hyperglycemia; L97.321 Non-pressure chronic ulcer of left ankle limited to breakdown of skin; I70.243 Atherosclerosis of native arteries of left leg with ulceration of ankle; I79.8 Other disorders of arteries, arterioles and capillaries in diseases classified elsewhere; I87.2 Venous insufficiency (chronic) (peripheral); R60.0 Localized edema; M1A.9XX0 Chronic gout, unspecified, without tophus (tophi); I10 Essential (primary) hypertension; I25.10 Atherosclerotic heart disease of native coronary artery without angina pectoris; D64.9 Anemia, unspecified; F41.1 Generalized anxiety disorder; F32.9 Major depressive disorder, single episode, unspecified

== ENCOUNTER → 2021-10-14 | Outpatient (CLI) | payer OTHER ==
[~2021-10-14] MED LIST changes: +CLOTRIMAZOLE/BETAMETHASONE 45 GM CR TP ONE; +LIDOCAINE VISC 2% SOLN 15 ML UDC ONE; +MINERAL OIL/PETROLAT/GLYCERI 6OZ BTL ONE
== END ==
LOC: WCC 14:04
PROVIDERS: ATTEND Podiatrist
DX: T81.89XD Other complications of procedures, not elsewhere classified, subsequent encounter (principal); Y84.8 Other medical procedures as the cause of abnormal reaction of the patient, or of later complication, without mention of misadventure at the time of the procedure; E11.65 Type 2 diabetes mellitus with hyperglycemia; L97.321 Non-pressure chronic ulcer of left ankle limited to breakdown of skin; I70.243 Atherosclerosis of native arteries of left leg with ulceration of ankle; I79.8 Other disorders of arteries, arterioles and capillaries in diseases classified elsewhere; I87.2 Venous insufficiency (chronic) (peripheral); R60.0 Localized edema; M1A.9XX0 Chronic gout, unspecified, without tophus (tophi); I10 Essential (primary) hypertension; I25.10 Atherosclerotic heart disease of native coronary artery without angina pectoris; D64.9 Anemia, unspecified; F32.9 Major depressive disorder, single episode, unspecified; F41.1 Generalized anxiety disorder

== ENCOUNTER → 2021-10-28 | Outpatient (CLI) | payer OTHER ==
[~2021-10-28] MED LIST changes: -CLOTRIMAZOLE/BETAMETHASONE 45 GM CR TP ONE; -LIDOCAINE VISC 2% SOLN 15 ML UDC ONE; -MINERAL OIL/PETROLAT/GLYCERI 6OZ BTL ONE
== END ==
LOC: WCC 13:51
PROVIDERS: ATTEND Podiatrist
DX: E11.65 Type 2 diabetes mellitus with hyperglycemia (principal); Y84.8 Other medical procedures as the cause of abnormal reaction of the patient, or of later complication, without mention of misadventure at the time of the procedure; L97.321 Non-pressure chronic ulcer of left ankle limited to breakdown of skin; I70.243 Atherosclerosis of native arteries of left leg with ulceration of ankle; I79.8 Other disorders of arteries, arterioles and capillaries in diseases classified elsewhere; I87.2 Venous insufficiency (chronic) (peripheral); R60.0 Localized edema; M1A.9XX0 Chronic gout, unspecified, without tophus (tophi); I10 Essential (primary) hypertension; I25.10 Atherosclerotic heart disease of native coronary artery without angina pectoris; D64.9 Anemia, unspecified; F32.9 Major depressive disorder, single episode, unspecified; F41.1 Generalized anxiety disorder
CPT/HCPCS: 87071; 87075; 87205; 88304

== ENCOUNTER → 2021-11-04 | Outpatient (CLI) | payer OTHER | LOC: WCC 15:54 | PROVIDERS: ATTEND Podiatrist | DX: E11.65 Type 2 diabetes mellitus with hyperglycemia (principal); Y84.8 Other medical procedures as the cause of abnormal reaction of the patient, or of later complication, without mention of misadventure at the time of the procedure; L97.321 Non-pressure chronic ulcer of left ankle limited to breakdown of skin; I70.243 Atherosclerosis of native arteries of left leg with ulceration of ankle; I79.8 Other disorders of arteries, arterioles and capillaries in diseases classified elsewhere; I87.2 Venous insufficiency (chronic) (peripheral); R60.0 Localized edema; M1A.9XX0 Chronic gout, unspecified, without tophus (tophi); I10 Essential (primary) hypertension; I25.10 Atherosclerotic heart disease of native coronary artery without angina pectoris; D64.9 Anemia, unspecified; F41.1 Generalized anxiety disorder; F32.9 Major depressive disorder, single episode, unspecified; B96.89 Other specified bacterial agents as the cause of diseases classified elsewhere ==

== ENCOUNTER → 2021-11-06 | Outpatient (CLI) | payer OTHER ==
[~2021-11-06] MED LIST changes: +ALBUTEROL SULF 0.083% NEB SOLN 3 ML NEB ONE
== END ==
LOC: RESP 09:37
PROVIDERS: ATTEND Internal Medicine Critical Care Medicine
DX: J45.909 Unspecified asthma, uncomplicated (principal); G47.33 Obstructive sleep apnea (adult) (pediatric); Z68.41 Body mass index [BMI] 40.0-44.9, adult; F17.200 Nicotine dependence, unspecified, uncomplicated
CPT/HCPCS: 94060; 94640; 94727; 94729

== ENCOUNTER → 2021-11-18 | Outpatient (CLI) | payer OTHER ==
[~2021-11-18] MED LIST changes: -ALBUTEROL SULF 0.083% NEB SOLN 3 ML NEB ONE
== END ==
LOC: WCC 15:35
PROVIDERS: ATTEND Podiatrist
DX: E11.65 Type 2 diabetes mellitus with hyperglycemia (principal); Y84.8 Other medical procedures as the cause of abnormal reaction of the patient, or of later complication, without mention of misadventure at the time of the procedure; L97.811 Non-pressure chronic ulcer of other part of right lower leg limited to breakdown of skin; L97.321 Non-pressure chronic ulcer of left ankle limited to breakdown of skin; I70.238 Atherosclerosis of native arteries of right leg with ulceration of other part of lower leg; I70.243 Atherosclerosis of native arteries of left leg with ulceration of ankle; I79.8 Other disorders of arteries, arterioles and capillaries in diseases classified elsewhere; I87.2 Venous insufficiency (chronic) (peripheral); R60.0 Localized edema; M1A.9XX0 Chronic gout, unspecified, without tophus (tophi); I10 Essential (primary) hypertension; I25.10 Atherosclerotic heart disease of native coronary artery without angina pectoris; D64.9 Anemia, unspecified; B96.89 Other specified bacterial agents as the cause of diseases classified elsewhere; F32.9 Major depressive disorder, single episode, unspecified; F41.1 Generalized anxiety disorder

== ENCOUNTER → 2021-11-25 | Outpatient (CLI) | payer OTHER ==
[~2021-11-25] MED LIST changes: +CLOTRIMAZOLE/BETAMETHASONE 45 GM CR TP ONE; +LIDOCAINE/PRILOCAINE 2.5-2.5% KIT ONE
== END ==
LOC: WCC 14:34
PROVIDERS: ATTEND Podiatrist
DX: E11.65 Type 2 diabetes mellitus with hyperglycemia (principal); Y84.8 Other medical procedures as the cause of abnormal reaction of the patient, or of later complication, without mention of misadventure at the time of the procedure; L97.811 Non-pressure chronic ulcer of other part of right lower leg limited to breakdown of skin; L97.321 Non-pressure chronic ulcer of left ankle limited to breakdown of skin; I70.238 Atherosclerosis of native arteries of right leg with ulceration of other part of lower leg; I70.243 Atherosclerosis of native arteries of left leg with ulceration of ankle; I87.2 Venous insufficiency (chronic) (peripheral); R60.0 Localized edema; I79.8 Other disorders of arteries, arterioles and capillaries in diseases classified elsewhere; M1A.9XX0 Chronic gout, unspecified, without tophus (tophi); I10 Essential (primary) hypertension; I25.10 Atherosclerotic heart disease of native coronary artery without angina pectoris; D64.9 Anemia, unspecified; B96.89 Other specified bacterial agents as the cause of diseases classified elsewhere; F41.1 Generalized anxiety disorder; F32.9 Major depressive disorder, single episode, unspecified

== ENCOUNTER → 2021-11-27 | Outpatient (CLI) | payer OTHER ==
[~2021-11-27] MED LIST changes: -CLOTRIMAZOLE/BETAMETHASONE 45 GM CR TP ONE; -LIDOCAINE/PRILOCAINE 2.5-2.5% KIT ONE
== END ==
LOC: CT 11:40
PROVIDERS: ATTEND Internal Medicine Critical Care Medicine
DX: J98.4 Other disorders of lung (principal); L93.0 Discoid lupus erythematosus; G47.33 Obstructive sleep apnea (adult) (pediatric); J45.909 Unspecified asthma, uncomplicated; M05.10 Rheumatoid lung disease with rheumatoid arthritis of unspecified site; Z68.41 Body mass index [BMI] 40.0-44.9, adult; F17.200 Nicotine dependence, unspecified, uncomplicated
CPT/HCPCS: 71250

== ENCOUNTER → 2021-12-09 | Outpatient (CLI) | payer OTHER | LOC: WCC 16:29 | PROVIDERS: ATTEND Podiatrist | DX: E11.65 Type 2 diabetes mellitus with hyperglycemia (principal); Y84.8 Other medical procedures as the cause of abnormal reaction of the patient, or of later complication, without mention of misadventure at the time of the procedure; L97.811 Non-pressure chronic ulcer of other part of right lower leg limited to breakdown of skin; L97.321 Non-pressure chronic ulcer of left ankle limited to breakdown of skin; I70.238 Atherosclerosis of native arteries of right leg with ulceration of other part of lower leg; I70.243 Atherosclerosis of native arteries of left leg with ulceration of ankle; I79.8 Other disorders of arteries, arterioles and capillaries in diseases classified elsewhere; I87.2 Venous insufficiency (chronic) (peripheral); R60.0 Localized edema; M1A.9XX0 Chronic gout, unspecified, without tophus (tophi); D64.9 Anemia, unspecified; I10 Essential (primary) hypertension; I25.10 Atherosclerotic heart disease of native coronary artery without angina pectoris; F32.9 Major depressive disorder, single episode, unspecified; F41.1 Generalized anxiety disorder ==

== ENCOUNTER → 2021-12-16 | Outpatient (CLI) | payer OTHER | LOC: WCC 14:40 | PROVIDERS: ATTEND Podiatrist | DX: E11.65 Type 2 diabetes mellitus with hyperglycemia (principal); Y84.8 Other medical procedures as the cause of abnormal reaction of the patient, or of later complication, without mention of misadventure at the time of the procedure; L97.811 Non-pressure chronic ulcer of other part of right lower leg limited to breakdown of skin; L97.321 Non-pressure chronic ulcer of left ankle limited to breakdown of skin; I70.238 Atherosclerosis of native arteries of right leg with ulceration of other part of lower leg; I70.243 Atherosclerosis of native arteries of left leg with ulceration of ankle; I87.2 Venous insufficiency (chronic) (peripheral); I79.8 Other disorders of arteries, arterioles and capillaries in diseases classified elsewhere; R60.0 Localized edema; M1A.9XX0 Chronic gout, unspecified, without tophus (tophi); I10 Essential (primary) hypertension; I25.10 Atherosclerotic heart disease of native coronary artery without angina pectoris; D64.9 Anemia, unspecified; F32.9 Major depressive disorder, single episode, unspecified; F41.1 Generalized anxiety disorder ==

== ENCOUNTER → 2021-12-23 | Outpatient (CLI) | payer OTHER ==
[~2021-12-23] MED LIST changes: +CLOTRIMAZOLE/BETAMETHASONE 45 GM CR TP ONE; +MINERAL OIL/PETROLAT/GLYCERI 6OZ BTL ONE
== END ==
LOC: WCC 15:00
PROVIDERS: ATTEND Podiatrist
DX: E11.65 Type 2 diabetes mellitus with hyperglycemia (principal); Y84.8 Other medical procedures as the cause of abnormal reaction of the patient, or of later complication, without mention of misadventure at the time of the procedure; L97.811 Non-pressure chronic ulcer of other part of right lower leg limited to breakdown of skin; L97.321 Non-pressure chronic ulcer of left ankle limited to breakdown of skin; I70.238 Atherosclerosis of native arteries of right leg with ulceration of other part of lower leg; I70.243 Atherosclerosis of native arteries of left leg with ulceration of ankle; I79.8 Other disorders of arteries, arterioles and capillaries in diseases classified elsewhere; I87.2 Venous insufficiency (chronic) (peripheral); R60.0 Localized edema; M1A.9XX0 Chronic gout, unspecified, without tophus (tophi); D64.9 Anemia, unspecified; I10 Essential (primary) hypertension; I25.10 Atherosclerotic heart disease of native coronary artery without angina pectoris; F32.9 Major depressive disorder, single episode, unspecified; F41.1 Generalized anxiety disorder

== ENCOUNTER → 2021-12-30 | Outpatient (CLI) | payer OTHER ==
[~2021-12-30] MED LIST changes: -CLOTRIMAZOLE/BETAMETHASONE 45 GM CR TP ONE; -MINERAL OIL/PETROLAT/GLYCERI 6OZ BTL ONE
== END ==
LOC: WCC 13:55
PROVIDERS: ATTEND Podiatrist
DX: E11.65 Type 2 diabetes mellitus with hyperglycemia (principal); L97.811 Non-pressure chronic ulcer of other part of right lower leg limited to breakdown of skin; L97.321 Non-pressure chronic ulcer of left ankle limited to breakdown of skin; I70.238 Atherosclerosis of native arteries of right leg with ulceration of other part of lower leg; I70.243 Atherosclerosis of native arteries of left leg with ulceration of ankle; I87.2 Venous insufficiency (chronic) (peripheral); L03.116 Cellulitis of left lower limb; I79.8 Other disorders of arteries, arterioles and capillaries in diseases classified elsewhere; R60.0 Localized edema; M32.10 Systemic lupus erythematosus, organ or system involvement unspecified; M1A.9XX0 Chronic gout, unspecified, without tophus (tophi); I10 Essential (primary) hypertension; D64.9 Anemia, unspecified; I25.10 Atherosclerotic heart disease of native coronary artery without angina pectoris; F32.9 Major depressive disorder, single episode, unspecified; F41.1 Generalized anxiety disorder; Y84.8 Other medical procedures as the cause of abnormal reaction of the patient, or of later complication, without mention of misadventure at the time of the procedure

== ENCOUNTER → 2022-01-06 | Outpatient (CLI) | payer OTHER | LOC: WCC 14:34 | PROVIDERS: ATTEND Podiatrist | DX: E11.65 Type 2 diabetes mellitus with hyperglycemia (principal); Y84.8 Other medical procedures as the cause of abnormal reaction of the patient, or of later complication, without mention of misadventure at the time of the procedure; L97.811 Non-pressure chronic ulcer of other part of right lower leg limited to breakdown of skin; L97.321 Non-pressure chronic ulcer of left ankle limited to breakdown of skin; L03.116 Cellulitis of left lower limb; I70.238 Atherosclerosis of native arteries of right leg with ulceration of other part of lower leg; I70.243 Atherosclerosis of native arteries of left leg with ulceration of ankle; I79.8 Other disorders of arteries, arterioles and capillaries in diseases classified elsewhere; I87.2 Venous insufficiency (chronic) (peripheral); R60.0 Localized edema; M1A.9XX0 Chronic gout, unspecified, without tophus (tophi); I25.10 Atherosclerotic heart disease of native coronary artery without angina pectoris; I10 Essential (primary) hypertension; M32.10 Systemic lupus erythematosus, organ or system involvement unspecified; D64.9 Anemia, unspecified; F41.1 Generalized anxiety disorder; F32.9 Major depressive disorder, single episode, unspecified ==

== ENCOUNTER → 2022-01-13 | Outpatient (CLI) | payer OTHER | LOC: WCC 13:15 | PROVIDERS: ATTEND Podiatrist | DX: E11.65 Type 2 diabetes mellitus with hyperglycemia (principal); Y84.8 Other medical procedures as the cause of abnormal reaction of the patient, or of later complication, without mention of misadventure at the time of the procedure; L97.811 Non-pressure chronic ulcer of other part of right lower leg limited to breakdown of skin; L97.321 Non-pressure chronic ulcer of left ankle limited to breakdown of skin; L03.116 Cellulitis of left lower limb; I87.2 Venous insufficiency (chronic) (peripheral); I79.8 Other disorders of arteries, arterioles and capillaries in diseases classified elsewhere; I70.238 Atherosclerosis of native arteries of right leg with ulceration of other part of lower leg; I70.243 Atherosclerosis of native arteries of left leg with ulceration of ankle; R60.0 Localized edema; M1A.9XX0 Chronic gout, unspecified, without tophus (tophi); I10 Essential (primary) hypertension; M32.10 Systemic lupus erythematosus, organ or system involvement unspecified; I25.10 Atherosclerotic heart disease of native coronary artery without angina pectoris; D64.9 Anemia, unspecified; F41.1 Generalized anxiety disorder; F32.9 Major depressive disorder, single episode, unspecified ==

== ENCOUNTER → 2022-01-20 | Outpatient (CLI) | payer OTHER | LOC: WCC 13:47 | PROVIDERS: ATTEND Podiatrist | DX: I70.238 Atherosclerosis of native arteries of right leg with ulceration of other part of lower leg (principal); E11.65 Type 2 diabetes mellitus with hyperglycemia; I70.243 Atherosclerosis of native arteries of left leg with ulceration of ankle; L03.116 Cellulitis of left lower limb; L97.811 Non-pressure chronic ulcer of other part of right lower leg limited to breakdown of skin; L97.321 Non-pressure chronic ulcer of left ankle limited to breakdown of skin; I87.2 Venous insufficiency (chronic) (peripheral); M32.10 Systemic lupus erythematosus, organ or system involvement unspecified; R60.0 Localized edema; M1A.9XX0 Chronic gout, unspecified, without tophus (tophi); I79.8 Other disorders of arteries, arterioles and capillaries in diseases classified elsewhere; I10 Essential (primary) hypertension; I25.10 Atherosclerotic heart disease of native coronary artery without angina pectoris; D64.9 Anemia, unspecified; F32.9 Major depressive disorder, single episode, unspecified; F41.1 Generalized anxiety disorder; Y84.8 Other medical procedures as the cause of abnormal reaction of the patient, or of later complication, without mention of misadventure at the time of the procedure | CPT/HCPCS: 96372 ==

== ENCOUNTER → 2022-01-27 | Outpatient (CLI) | payer OTHER | LOC: WCC 15:58 | PROVIDERS: ATTEND Podiatrist | DX: E11.65 Type 2 diabetes mellitus with hyperglycemia (principal); Y84.8 Other medical procedures as the cause of abnormal reaction of the patient, or of later complication, without mention of misadventure at the time of the procedure; L97.811 Non-pressure chronic ulcer of other part of right lower leg limited to breakdown of skin; L97.321 Non-pressure chronic ulcer of left ankle limited to breakdown of skin; I70.238 Atherosclerosis of native arteries of right leg with ulceration of other part of lower leg; I70.243 Atherosclerosis of native arteries of left leg with ulceration of ankle; I79.8 Other disorders of arteries, arterioles and capillaries in diseases classified elsewhere; L03.116 Cellulitis of left lower limb; I87.2 Venous insufficiency (chronic) (peripheral); M1A.9XX0 Chronic gout, unspecified, without tophus (tophi); M32.10 Systemic lupus erythematosus, organ or system involvement unspecified; I25.10 Atherosclerotic heart disease of native coronary artery without angina pectoris; R60.0 Localized edema; I10 Essential (primary) hypertension; D64.9 Anemia, unspecified; F41.1 Generalized anxiety disorder; F32.9 Major depressive disorder, single episode, unspecified ==

== ENCOUNTER → 2022-02-03 | Outpatient (CLI) | payer OTHER | LOC: WCC 13:42 | PROVIDERS: ATTEND Podiatrist | DX: E11.65 Type 2 diabetes mellitus with hyperglycemia (principal); Y84.8 Other medical procedures as the cause of abnormal reaction of the patient, or of later complication, without mention of misadventure at the time of the procedure; L97.811 Non-pressure chronic ulcer of other part of right lower leg limited to breakdown of skin; L97.321 Non-pressure chronic ulcer of left ankle limited to breakdown of skin; I70.238 Atherosclerosis of native arteries of right leg with ulceration of other part of lower leg; I70.243 Atherosclerosis of native arteries of left leg with ulceration of ankle; I87.2 Venous insufficiency (chronic) (peripheral); I79.8 Other disorders of arteries, arterioles and capillaries in diseases classified elsewhere; R60.0 Localized edema; M1A.9XX0 Chronic gout, unspecified, without tophus (tophi); M32.10 Systemic lupus erythematosus, organ or system involvement unspecified; I10 Essential (primary) hypertension; I25.10 Atherosclerotic heart disease of native coronary artery without angina pectoris; D64.9 Anemia, unspecified; F41.1 Generalized anxiety disorder; F32.9 Major depressive disorder, single episode, unspecified ==

== ENCOUNTER → 2022-02-10 | Outpatient (CLI) | payer OTHER | LOC: WCC 15:29 | PROVIDERS: ATTEND Podiatrist | DX: E11.65 Type 2 diabetes mellitus with hyperglycemia (principal); Y84.8 Other medical procedures as the cause of abnormal reaction of the patient, or of later complication, without mention of misadventure at the time of the procedure; L97.811 Non-pressure chronic ulcer of other part of right lower leg limited to breakdown of skin; L97.321 Non-pressure chronic ulcer of left ankle limited to breakdown of skin; I70.238 Atherosclerosis of native arteries of right leg with ulceration of other part of lower leg; I70.243 Atherosclerosis of native arteries of left leg with ulceration of ankle; I79.8 Other disorders of arteries, arterioles and capillaries in diseases classified elsewhere; I87.2 Venous insufficiency (chronic) (peripheral); R60.0 Localized edema; M1A.9XX0 Chronic gout, unspecified, without tophus (tophi); M32.10 Systemic lupus erythematosus, organ or system involvement unspecified; I10 Essential (primary) hypertension; D64.9 Anemia, unspecified; I25.10 Atherosclerotic heart disease of native coronary artery without angina pectoris; F32.9 Major depressive disorder, single episode, unspecified; F41.1 Generalized anxiety disorder ==

== ENCOUNTER → 2022-02-24 | Outpatient (CLI) | payer OTHER ==
[~2022-02-24] MED LIST changes: +CALCIUM ACETAT667 MG PO; +MULTI-VITAMIN1 EACH PO
== END ==
LOC: WCC 13:41
PROVIDERS: ATTEND Podiatrist
DX: E11.65 Type 2 diabetes mellitus with hyperglycemia (principal); Y84.8 Other medical procedures as the cause of abnormal reaction of the patient, or of later complication, without mention of misadventure at the time of the procedure; L97.811 Non-pressure chronic ulcer of other part of right lower leg limited to breakdown of skin; L97.321 Non-pressure chronic ulcer of left ankle limited to breakdown of skin; I70.238 Atherosclerosis of native arteries of right leg with ulceration of other part of lower leg; I70.243 Atherosclerosis of native arteries of left leg with ulceration of ankle; I79.8 Other disorders of arteries, arterioles and capillaries in diseases classified elsewhere; I87.2 Venous insufficiency (chronic) (peripheral); R60.0 Localized edema; M1A.9XX0 Chronic gout, unspecified, without tophus (tophi); M32.10 Systemic lupus erythematosus, organ or system involvement unspecified; I25.10 Atherosclerotic heart disease of native coronary artery without angina pectoris; I10 Essential (primary) hypertension; D64.9 Anemia, unspecified; F32.9 Major depressive disorder, single episode, unspecified; F41.1 Generalized anxiety disorder

== ENCOUNTER → 2022-03-01 | Day surgery (SDC) | payer OTHER ==
[~2022-03-01] MED LIST changes: +EPHEDRINE SULFATE INJ 50 MG/ML VIAL IV ONE; +EPINEPHRINE HCL 1:1000 1ML 1 MG/ML AMP ONE; +LIDOCAINE HCL 4% 50 ML BTL ONE; +MIDAZOLAM HCL 2 MG/2 ML VIAL ONE; +ONDANSETRON HCL INJ 2MG/ML 2ML 2 MG/ML VIAL IV ONE; +POVIDONE IODINE 0.05% 0.05 % ML PO ONE; +PROPOFOL IV EMULSION 10 MG/ML 20 ML VIAL IV ONE; +SEVOFLURANE INHAL SOLN 250 ML PEN BTL INH ONE
[2022-03-01 08:46] LABS: BASOPHILS % 0.3 % (0.0-1.0); EOSINOPHILS % 0.5 % (0.0-6.0); HEMOGLOBIN 13.1 g/dL (14.0-18.0); LYMPHOCYTES # (AUTO) 1.2 (1.0-3.2); LYMPHOCYTES % 15.6 % (18.0-39.1); MEAN CORPUSCULAR HEMOGLOBIN 32.9 pg (28-32); MONOCYTES # (AUTO) 0.5 (0.2-0.8); MONOCYTES % 6.3 % (4.4-11.3); NEUTROPHILS # (AUTO) 5.9 (2.1-6.9); NEUTROPHILS % 76.8 % (38.7-80.0); PLATELET COUNT 139 x10e3/uL (140-360); RED BLOOD COUNT 3.98 x10e6/uL (4.3-5.7); RED CELL DISTRIBUTION WIDTH 14.4 % (11.7-14.4)
[2022-03-01 08:58] LABS: INR 0.84; PROTHROMBIN TIME 12.3 seconds (11.9-14.5)
[2022-03-01 08:59] LABS: PARTIAL THROMBOPLASTIN TIME 30.4 seconds (23.8-35.5)
[2022-03-01 09:07] LABS: ALBUMIN 3.8 g/dL (3.5-5.0); ALBUMIN/GLOBULIN RATIO 0.9 (0.8-2.0); ANION GAP 13.2 mmol/L (8-16); CALCIUM 9.8 mg/dL (8.4-10.2); CREATININE, SERUM 1.27 mg/dL (0.72-1.25); POTASSIUM 4.2 mmol/L (3.5-5.1)
[2022-03-01 12:42] VITALS: BP 122/66
[2022-03-01 15:05] LABS: BODY FLUID APPEARANCE CLEAR; BODY FLUID COLOR COLORLESS; BODY FLUID TYPE BAL LUL; RBC,BODY FLUID < 2000 cells/uL; WBC,BODY FLUID 153 cells/uL
[2022-03-01 16:57] LABS: LYMPHOCYTES,BODY FLUID 5 %; MONO/MACROPHG,BODY FLUID 55 %; NEUTROPHILS,BODY FLUID 40 %
== END | disposition home or self-care (01) ==
LOC: ENDO 08:16
PROVIDERS: ATTEND Internal Medicine Critical Care Medicine
DX: J18.9 Pneumonia, unspecified organism (principal); E66.01 Morbid (severe) obesity due to excess calories; Z68.41 Body mass index [BMI] 40.0-44.9, adult; J98.4 Other disorders of lung; F17.200 Nicotine dependence, unspecified, uncomplicated; R09.02 Hypoxemia; L93.0 Discoid lupus erythematosus; G47.33 Obstructive sleep apnea (adult) (pediatric); J84.10 Pulmonary fibrosis, unspecified; J45.909 Unspecified asthma, uncomplicated; M05.10 Rheumatoid lung disease with rheumatoid arthritis of unspecified site; J30.2 Other seasonal allergic rhinitis; Z99.81 Dependence on supplemental oxygen; E11.9 Type 2 diabetes mellitus without complications; K21.9 Gastro-esophageal reflux disease without esophagitis; I25.10 Atherosclerotic heart disease of native coronary artery without angina pectoris; I10 Essential (primary) hypertension; E78.5 Hyperlipidemia, unspecified; Z01.812 Encounter for preprocedural laboratory examination; Z20.822 Contact with and (suspected) exposure to COVID-19
CPT/HCPCS: 0223U; 31624; 31628; 31632; 36415; 71045; 80053; 85025; 85610; 85730; 87102; 87116; 87205; 87206 ×2; 87335; 88305; 89051; J2250; J2405; J2704; 31622; 88304; J0171

== ENCOUNTER → 2022-03-03 | Outpatient (CLI) | payer OTHER ==
[~2022-03-03] MED LIST changes: -EPHEDRINE SULFATE INJ 50 MG/ML VIAL IV ONE; -EPINEPHRINE HCL 1:1000 1ML 1 MG/ML AMP ONE; -LIDOCAINE HCL 4% 50 ML BTL ONE; -MIDAZOLAM HCL 2 MG/2 ML VIAL ONE; -ONDANSETRON HCL INJ 2MG/ML 2ML 2 MG/ML VIAL IV ONE; -POVIDONE IODINE 0.05% 0.05 % ML PO ONE; -PROPOFOL IV EMULSION 10 MG/ML 20 ML VIAL IV ONE; -SEVOFLURANE INHAL SOLN 250 ML PEN BTL INH ONE
== END ==
LOC: WCC 12:50
PROVIDERS: ATTEND Podiatrist
DX: E11.65 Type 2 diabetes mellitus with hyperglycemia (principal); Y84.8 Other medical procedures as the cause of abnormal reaction of the patient, or of later complication, without mention of misadventure at the time of the procedure; I70.238 Atherosclerosis of native arteries of right leg with ulceration of other part of lower leg; L97.811 Non-pressure chronic ulcer of other part of right lower leg limited to breakdown of skin; I70.243 Atherosclerosis of native arteries of left leg with ulceration of ankle; L97.321 Non-pressure chronic ulcer of left ankle limited to breakdown of skin; I79.8 Other disorders of arteries, arterioles and capillaries in diseases classified elsewhere; R60.0 Localized edema; I87.2 Venous insufficiency (chronic) (peripheral); M1A.9XX0 Chronic gout, unspecified, without tophus (tophi); M32.10 Systemic lupus erythematosus, organ or system involvement unspecified; D64.9 Anemia, unspecified; I10 Essential (primary) hypertension; F41.1 Generalized anxiety disorder; I25.10 Atherosclerotic heart disease of native coronary artery without angina pectoris; F32.9 Major depressive disorder, single episode, unspecified

== ENCOUNTER → 2022-08-11 | Outpatient (CLI) | payer OTHER | LOC: CT 09:39 | PROVIDERS: ATTEND Internal Medicine Critical Care Medicine | DX: R09.02 Hypoxemia (principal); J84.9 Interstitial pulmonary disease, unspecified; J98.4 Other disorders of lung; G47.33 Obstructive sleep apnea (adult) (pediatric); J84.10 Pulmonary fibrosis, unspecified; L93.0 Discoid lupus erythematosus; J45.909 Unspecified asthma, uncomplicated; M05.10 Rheumatoid lung disease with rheumatoid arthritis of unspecified site; Z68.41 Body mass index [BMI] 40.0-44.9, adult | CPT/HCPCS: 71250 ==

== ENCOUNTER → 2022-09-28 | Outpatient (CLI) | payer OTHER | LOC: RESP 09:26 | PROVIDERS: ATTEND Internal Medicine Critical Care Medicine | DX: J98.4 Other disorders of lung (principal); F17.200 Nicotine dependence, unspecified, uncomplicated; R09.02 Hypoxemia; G47.00 Insomnia, unspecified; J84.9 Interstitial pulmonary disease, unspecified; L93.0 Discoid lupus erythematosus; G47.33 Obstructive sleep apnea (adult) (pediatric); J84.10 Pulmonary fibrosis, unspecified; J45.909 Unspecified asthma, uncomplicated; M05.10 Rheumatoid lung disease with rheumatoid arthritis of unspecified site | CPT/HCPCS: 94060; 94727; 94729 ==

== ENCOUNTER 2023-01-11 09:44 | Outpatient (RCR) | payer OTHER | END 2023-01-21 | LOC: RESP 09:44 | PROVIDERS: ATTEND Internal Medicine Critical Care Medicine | DX: R09.02 Hypoxemia (principal); Z73.89 Other problems related to life management difficulty; J84.10 Pulmonary fibrosis, unspecified; J98.4 Other disorders of lung; G47.00 Insomnia, unspecified; J84.9 Interstitial pulmonary disease, unspecified; M32.9 Systemic lupus erythematosus, unspecified; G47.33 Obstructive sleep apnea (adult) (pediatric); J30.2 Other seasonal allergic rhinitis; Z68.41 Body mass index [BMI] 40.0-44.9, adult; Z87.891 Personal history of nicotine dependence | CPT/HCPCS: 94799 ==

== ENCOUNTER → 2024-06-11 | Outpatient (REF) | payer MEDICARE | LOC: CT 14:45 | PROVIDERS: ATTEND Nurse Practitioner Family | DX: J84.9 Interstitial pulmonary disease, unspecified (principal); G47.33 Obstructive sleep apnea (adult) (pediatric); G47.00 Insomnia, unspecified | CPT/HCPCS: 71250 ==

== ENCOUNTER → 2024-08-31 | Outpatient (REF) | payer MEDICARE | LOC: US 12:26 | PROVIDERS: ATTEND Physician Assistant | DX: E04.1 Nontoxic single thyroid nodule (principal) | CPT/HCPCS: 76536 ==

== ENCOUNTER → 2025-01-08 | Outpatient (REF) | payer MEDICARE | LOC: CT 11:28 | PROVIDERS: ATTEND Nurse Practitioner Family | DX: R09.02 Hypoxemia (principal); J84.10 Pulmonary fibrosis, unspecified; J84.9 Interstitial pulmonary disease, unspecified; R76.8 Other specified abnormal immunological findings in serum; J98.4 Other disorders of lung; I50.9 Heart failure, unspecified; G47.00 Insomnia, unspecified; L93.0 Discoid lupus erythematosus; G47.33 Obstructive sleep apnea (adult) (pediatric); J45.909 Unspecified asthma, uncomplicated; E04.1 Nontoxic single thyroid nodule; Z73.89 Other problems related to life management difficulty; Z68.41 Body mass index [BMI] 40.0-44.9, adult; Z86.16 Personal history of COVID-19; Z87.891 Personal history of nicotine dependence | CPT/HCPCS: 71250 ==

== ENCOUNTER → 2025-01-10 | Outpatient (REF) | payer MEDICARE | LOC: RESP 14:21 → EDSTATUS 15:00 | PROVIDERS: ATTEND Nurse Practitioner Family | DX: R09.02 Hypoxemia (principal); J84.9 Interstitial pulmonary disease, unspecified; L93.0 Discoid lupus erythematosus; G47.33 Obstructive sleep apnea (adult) (pediatric); J84.10 Pulmonary fibrosis, unspecified; J45.909 Unspecified asthma, uncomplicated; E04.1 Nontoxic single thyroid nodule; Z73.89 Other problems related to life management difficulty; R76.8 Other specified abnormal immunological findings in serum; J98.4 Other disorders of lung; I50.9 Heart failure, unspecified; G47.00 Insomnia, unspecified; Z68.41 Body mass index [BMI] 40.0-44.9, adult; Z86.16 Personal history of COVID-19; Z87.891 Personal history of nicotine dependence | CPT/HCPCS: 94060; 94727; 94729 ==

== ENCOUNTER → 2025-03-07 | Day surgery (SDC) | payer MEDICARE ==
[2025-02-28 13:10] LABS: BASOPHILS % 0.5 % (0.0-1.0); EOSINOPHILS % 3.8 % (0.0-6.0); LYMPHOCYTES % 21.5 % (18.0-39.1); MONOCYTES % 11.3 % (4.4-11.3); NEUTROPHILS % 62.6 % (38.7-80.0); RED CELL DISTRIBUTION WIDTH 14.6 % (11.7-14.4)
[~2025-03-07] MED LIST changes: +AMLODIPINE BESYL5 MG PO; +BENICAR HCT 401 EAC1; +CALCIUM; +FENTANYL CITRATE/PF 100MCG/2 ML INJ ONE; +IRON; +LIDOCAINE HCL 2% LOCAL INJ 5 ML SDV VIAL INJ ONE; +LUNESTA3 MG; +METFORMIN HCL850 MG PO; +MOUNJARO5 MG/0.5 M; +PROPOFOL IV EMULSION 10 MG/ML 20 ML VIAL ONE; +ZETIA10 MG PO
[2025-03-07] MEDS: LACTATED RINGER'S 1,000 ML ONE (08:43)
[2025-03-07 09:58] VITALS: TEMP 97.8
[2025-03-07 10:22] VITALS: BP 110/57; PULSE 76; RESP 18; O2SAT 99
== END | disposition home or self-care (01) ==
LOC: OR 06:34
PROVIDERS: ATTEND Internal Medicine Gastroenterology
DX: D50.9 Iron deficiency anemia, unspecified (principal); K29.50 Unspecified chronic gastritis without bleeding; K21.00 Gastro-esophageal reflux disease with esophagitis, without bleeding; K44.9 Diaphragmatic hernia without obstruction or gangrene; K57.30 Diverticulosis of large intestine without perforation or abscess without bleeding; K64.8 Other hemorrhoids; G47.33 Obstructive sleep apnea (adult) (pediatric); E11.9 Type 2 diabetes mellitus without complications; I25.10 Atherosclerotic heart disease of native coronary artery without angina pectoris; I10 Essential (primary) hypertension; E66.01 Morbid (severe) obesity due to excess calories; Z01.810 Encounter for preprocedural cardiovascular examination; Z01.812 Encounter for preprocedural laboratory examination; Z79.84 Long term (current) use of oral hypoglycemic drugs; Z79.85 Long-term (current) use of injectable non-insulin antidiabetic drugs; Z79.899 Other long term (current) drug therapy; Z68.41 Body mass index [BMI] 40.0-44.9, adult; Z71.3 Dietary counseling and surveillance; Z87.891 Personal history of nicotine dependence; Z95.5 Presence of coronary angioplasty implant and graft
CPT/HCPCS: 36415 ×2; 43239; 45378; 82948; 85025; 88305; 93005; J2003; J2704; J3010; J7121

== ENCOUNTER → 2025-04-16 | Outpatient (REF) | payer MEDICARE ==
[~2025-04-16] MED LIST changes: -FENTANYL CITRATE/PF 100MCG/2 ML INJ ONE; -LIDOCAINE HCL 2% LOCAL INJ 5 ML SDV VIAL INJ ONE; -PROPOFOL IV EMULSION 10 MG/ML 20 ML VIAL ONE
== END ==
LOC: RAD 14:20
PROVIDERS: ATTEND Nurse Practitioner Family
DX: J44.1 Chronic obstructive pulmonary disease with (acute) exacerbation (principal); J84.9 Interstitial pulmonary disease, unspecified; J98.4 Other disorders of lung
CPT/HCPCS: 71046